=== PATIENT | female | born 1980 | race Caucasian/White ===

== ENCOUNTER → 2016-12-03 | Outpatient (CLI) | payer BC ==
[2016-12-03 13:50] LABS: PROGESTERONE 8.4 NG/ML
[2016-12-03 14:29] LABS: FREE T4 1.01 NG/DL (0.76-1.46)
== END ==
LOC: M SMT 09:27
PROVIDERS: ATTEND Obstetrics & Gynecology
DX: E28.2 Polycystic ovarian syndrome (principal)

== ENCOUNTER → 2017-01-09 | Outpatient (CLI) | payer BC | LOC: M SMT 15:52 | PROVIDERS: ATTEND Obstetrics & Gynecology | DX: Z32.01 Encounter for pregnancy test, result positive (principal) ==

== ENCOUNTER → 2017-01-11 | Outpatient (CLI) | payer BC | LOC: M SMT 13:43 | PROVIDERS: ATTEND Obstetrics & Gynecology | DX: Z32.01 Encounter for pregnancy test, result positive (principal) ==

== ENCOUNTER → 2017-01-25 | Outpatient (REF) | payer BC | LOC: M LAB REF 21:16 | PROVIDERS: ATTEND Physician Assistant Medical | DX: J02.9 Acute pharyngitis, unspecified (principal) ==

== ENCOUNTER → 2017-02-05 | Outpatient (CLI) | payer BC ==
[2017-02-05 18:23] LABS: BASO % 0.3 % (0.0-1.0); EOS # 0.2 K/mm3 (0.0-0.50); EOS % 2.2 % (0.0-3.0); LARGE UNSTAINED CELL # 0.1 K/mm3 (0.0-0.4); LARGE UNSTAINED CELL % 1.3 % (0.0-4.0); LYMPH # 2.4 K/mm3 (1.5-4.5); LYMPH % 26.2 % (24.0-44.0); MEAN CORPUSCULAR HEMOGLOBIN 29.5 pg (27.0-33.0); MEAN CORPUSCULAR HGB CONC 33.5 g/dl (32.0-36.5); MEAN CORPUSCULAR VOLUME 87.9 fl (80.0-96.0); MONO # 0.6 K/mm3 (0.0-0.8); MONO % 6.2 % (0.0-5.0); NEUTROPHILS # 5.6 K/mm3 (1.8-7.7); NEUTROPHILS % 63.7 % (36.0-66.0); PLATELET COUNT, AUTOMATED 353 k/mm3 (150-450); RED CELL DISTRIBUTION WIDTH 14.2 % (11.5-14.5); WHITE BLOOD COUNT 8.8 K/mm3 (4.0-10.0)
[2017-02-06 14:34] LABS: HBsAg Prenatal NEGATIVE (NEGATIVE)
== END ==
LOC: M SMT 13:34
PROVIDERS: ATTEND Obstetrics & Gynecology
DX: Z34.81 Encounter for supervision of other normal pregnancy, first trimester (principal)

== ENCOUNTER → 2017-05-28 | Outpatient (REF) | payer BC | LOC: M LAB REF 19:34 | PROVIDERS: ATTEND Physician Assistant Medical | DX: J02.9 Acute pharyngitis, unspecified (principal) ==

== ENCOUNTER → 2017-07-01 | Outpatient (CLI) | payer BC | LOC: M RAD 13:32 | DX: D48.62 Neoplasm of uncertain behavior of left breast (principal) ==

== ENCOUNTER → 2017-08-20 | Outpatient (CLI) | payer BC ==
[2017-08-20 14:17] LABS: BASO % 0.2 % (0.0-1.0); EOS # 0.1 10^3/uL (0.0-0.50); EOS % 1.4 % (0.0-3.0); HEMATOCRIT 33.8 % (36.0-47.0); HEMOGLOBIN 10.8 g/dl (12.0-16.0); IMMATURE GRANULOCYTE % 0.5 % (0-3.0); LYMPH # 2.1 10^3/uL (1.5-4.5); LYMPH % 21.9 % (24.0-44.0); MEAN CORPUSCULAR HEMOGLOBIN 28.6 pg (27.0-33.0); MEAN CORPUSCULAR VOLUME 89.4 fl (80.0-96.0); MONO # 0.7 10^3/uL (0.0-0.8); MONO % 6.8 % (0.0-5.0); NEUTROPHILS # 6.7 10^3/uL (1.8-7.7); NEUTROPHILS % 69.2 % (36.0-66.0); PLATELET COUNT, AUTOMATED 373 10^3/uL (150-450); RED BLOOD COUNT 3.78 10^6/uL (4.00-5.40); RED CELL DISTRIBUTION WIDTH 14.7 % (11.5-14.5); WHITE BLOOD COUNT 9.7 10^3/uL (4.0-10.0)
[2017-08-20 14:46] LABS: ALBUMIN 3.2 GM/DL (3.2-5.2); ALBUMIN/GLOBULIN RATIO 0.73 (1.00-1.93); ALKALINE PHOSPHATASE 120 U/L (45-117); ALT/SGPT 17 U/L (12-78); ANION GAP 9 MEQ/L (8-16); AST/SGOT 14 U/L (7-37); BILIRUBIN,TOTAL 0.2 MG/DL (0.2-1.0); BLOOD UREA NITROGEN 12 MG/DL (7-18); CALCIUM LEVEL 8.8 MG/DL (8.5-10.1); CARBON DIOXIDE LEVEL 24 MEQ/L (21-32); CHLORIDE LEVEL 103 MEQ/L (98-107); CREATININE FOR GFR 0.72 MG/DL (0.55-1.30); FREE T4 1.04 NG/DL (0.76-1.46); GLOMERULAR FILTRATION RATE > 60.0 (>60); GLUCOSE, FASTING 76 MG/DL (70-100); POTASSIUM SERUM 4.2 MEQ/L (3.5-5.1); SODIUM LEVEL 136 MEQ/L (136-145); TOTAL PROTEIN 7.6 GM/DL (6.4-8.2)
[2017-08-20 16:28] LABS: ESTIMATED AVERAGE GLUCOSE 108 MG/DL (60-110); HEMOGLOBIN A1c 5.4 %
[2017-08-21 09:38] LABS: RUBELLA IgG QUALITATIVE IMMUNE (IMMUNE)
[2017-08-21 09:40] LABS: HBsAg Prenatal NEGATIVE (NEGATIVE)
[2017-08-21 10:06] LABS: HEPATITIS C VIRUS ABY INDEX 0.1 INDEX (<0.8)
[2017-08-21 10:07] LABS: HIV 1&2 SCREEN CENTAUR NEGATIVE (NEGATIVE)
== END ==
LOC: M SMT 10:09
DX: Z34.81 Encounter for supervision of other normal pregnancy, first trimester (principal); Z3A.01 Less than 8 weeks gestation of pregnancy
CPT/HCPCS: 84443

== ENCOUNTER → 2017-08-23 | Outpatient (REF) | payer BC ==
[2017-08-23 21:46] LABS: CHLAMYDIA DNA AMPLIFICATION NEGATIVE (NEGATIVE); GC DNA AMPLIFICATION NEGATIVE (NEGATIVE)
== END ==
LOC: M LAB REF 17:19
DX: Z34.81 Encounter for supervision of other normal pregnancy, first trimester (principal)
CPT/HCPCS: 87086

== ENCOUNTER → 2017-09-12 | Outpatient (CLI) | payer BC | LOC: M SMT 11:26 | DX: Z31.438 Encounter for other genetic testing of female for procreative management (principal) | CPT/HCPCS: 36415 ==

== ENCOUNTER 2017-10-18 22:03 | Emergency (ER) | payer BC ==
[2017-10-18] MEDS: AZITHROMYCIN INJ 500 MG, VIAL MATE ADAPTER 1 EACH in D5W 250 ML IV (23:15)
[2017-10-18] MEDS: ALBUTEROL SULFATE 2.5 MG/0.5 ML INH NEB SOLN NEB (23:33)
[2017-10-18 23:37] LABS: BASO % 0.1 % (0.0-1.0); EOS # 0.2 10^3/uL (0.0-0.50); IMMATURE GRANULOCYTE % 0.4 % (0-3.0); LYMPH # 2.6 10^3/uL (1.5-4.5); LYMPH % 28.7 % (24.0-44.0); MEAN CORPUSCULAR HEMOGLOBIN 28.4 pg (27.0-33.0); MEAN CORPUSCULAR HGB CONC 33.3 g/dl (32.0-36.5); MEAN CORPUSCULAR VOLUME 85.2 fl (80.0-96.0); MONO # 0.6 10^3/uL (0.0-0.8); MONO % 6.2 % (0.0-5.0); NEUTROPHILS # 5.7 10^3/uL (1.8-7.7); NEUTROPHILS % 62.6 % (36.0-66.0); PLATELET COUNT, AUTOMATED 374 10^3/uL (150-450); RED BLOOD COUNT 3.52 10^6/uL (4.00-5.40); RED CELL DISTRIBUTION WIDTH 13.6 % (11.5-14.5); WHITE BLOOD COUNT 9.1 10^3/uL (4.0-10.0)
[2017-10-18 23:55] LABS: ANION GAP 9 MEQ/L (8-16); BLOOD UREA NITROGEN 10 MG/DL (7-18); CALCIUM LEVEL 9.1 MG/DL (8.5-10.1); CARBON DIOXIDE LEVEL 25 MEQ/L (21-32); CHLORIDE LEVEL 105 MEQ/L (98-107); CREATININE FOR GFR 0.73 MG/DL (0.55-1.30); GLOMERULAR FILTRATION RATE > 60.0 (>60); GLUCOSE, FASTING 103 MG/DL (70-100); POTASSIUM SERUM 3.8 MEQ/L (3.5-5.1); SODIUM LEVEL 139 MEQ/L (136-145)
[2017-10-19] MEDS: dexameTHASONE 20 MG/5 ML VIAL (J1100) IV
== END 2017-10-19 01:10 | disposition home or self-care (01) ==
LOC: M ED 10-19 01:10
DX: O99.512 Diseases of the respiratory system complicating pregnancy, second trimester (principal); J18.1 Lobar pneumonia, unspecified organism; J40 Bronchitis, not specified as acute or chronic; Z3A.16 16 weeks gestation of pregnancy; Z79.2 Long term (current) use of antibiotics; Z79.890 Hormone replacement therapy; Z79.84 Long term (current) use of oral hypoglycemic drugs
CPT/HCPCS: J0456

== ENCOUNTER → 2017-11-06 | Outpatient (REF) | payer BC ==
[2017-11-07 11:13] LABS: FREE T4 1.09 NG/DL (0.76-1.46); THYROID STIMULATING HORMONE 0.533 uIU/ML (0.358-3.740)
== END ==
LOC: M LAB REF 14:00
DX: E03.9 Hypothyroidism, unspecified (principal)
CPT/HCPCS: 84443

== ENCOUNTER → 2017-11-11 | Outpatient (CLI) | payer BC | LOC: M SMT 09:25 | DX: Z36.89 Encounter for other specified antenatal screening (principal); Z3A.19 19 weeks gestation of pregnancy | CPT/HCPCS: 76811 ==

== ENCOUNTER → 2017-11-25 | Outpatient (CLI) | payer BC | LOC: M CARPUL 14:45 | DX: R06.02 Shortness of breath (principal) | CPT/HCPCS: 94010 ==

== ENCOUNTER → 2017-12-20 | Outpatient (CLI) | payer BC ==
[2017-12-20 13:51] LABS: BASO % 0.1 % (0.0-1.0); EOS # 0.1 10^3/uL (0.0-0.50); HEMATOCRIT 29.4 % (36.0-47.0); HEMOGLOBIN 9.6 g/dl (12.0-15.5); IMMATURE GRANULOCYTE % 0.7 % (0-3.0); LYMPH # 1.7 10^3/uL (1.5-4.5); LYMPH % 14.2 % (24.0-44.0); MEAN CORPUSCULAR HEMOGLOBIN 28.8 pg (27.0-33.0); MEAN CORPUSCULAR HGB CONC 32.7 g/dl (32.0-36.5); MEAN CORPUSCULAR VOLUME 88.3 fl (80.0-96.0); MONO # 0.7 10^3/uL (0.0-0.8); MONO % 5.4 % (0.0-5.0); NEUTROPHILS # 9.7 10^3/uL (1.8-7.7); NEUTROPHILS % 78.6 % (36.0-66.0); PLATELET COUNT, AUTOMATED 416 10^3/uL (150-450); RED BLOOD COUNT 3.33 10^6/uL (4.00-5.40); WHITE BLOOD COUNT 12.3 10^3/uL (4.0-10.0)
[2017-12-20 14:27] LABS: GLUCOSE CHALLENGE TEST 1 HOUR 103 MG/DL (LESS THAN 140)
[2017-12-20 14:27] LABS: FREE T4 1.04 NG/DL (0.76-1.46); THYROID STIMULATING HORMONE 0.581 uIU/ML (0.358-3.740)
== END ==
LOC: M SMT 09:40
DX: O09.522 Supervision of elderly multigravida, second trimester (principal)
CPT/HCPCS: 82950

== ENCOUNTER → 2017-12-25 | Outpatient (CLI) | payer BC | LOC: M RAD 18:08 | DX: O09.522 Supervision of elderly multigravida, second trimester (principal); Z36.89 Encounter for other specified antenatal screening; Z3A.25 25 weeks gestation of pregnancy | CPT/HCPCS: 76816 ==

== ENCOUNTER → 2018-02-11 | Outpatient (CLI) | payer BC | LOC: M RAD 14:01 | DX: I10 Essential (primary) hypertension (principal) ==

== ENCOUNTER → 2018-02-13 | Outpatient (CLI) | payer BC | LOC: M RAD 16:56 | DX: I10 Essential (primary) hypertension (principal) ==

== ENCOUNTER → 2018-02-18 | Outpatient (CLI) | payer BC | LOC: M RAD 11:25 | DX: O10.013 Pre-existing essential hypertension complicating pregnancy, third trimester (principal); Z3A.33 33 weeks gestation of pregnancy | CPT/HCPCS: 76815 ==

== ENCOUNTER → 2018-02-21 | Outpatient (CLI) | payer BC | LOC: M RAD 11:28 | DX: O10.013 Pre-existing essential hypertension complicating pregnancy, third trimester (principal); Z3A.34 34 weeks gestation of pregnancy | CPT/HCPCS: 76815 ==

== ENCOUNTER → 2018-02-25 | Outpatient (CLI) | payer BC | LOC: M RAD 15:04 | DX: O10.013 Pre-existing essential hypertension complicating pregnancy, third trimester (principal) | CPT/HCPCS: 76819 ==

== ENCOUNTER → 2018-02-27 | Outpatient (CLI) | payer BC | LOC: M RAD 11:29 | DX: O10.013 Pre-existing essential hypertension complicating pregnancy, third trimester (principal); Z3A.35 35 weeks gestation of pregnancy | CPT/HCPCS: 76815 ==

== ENCOUNTER → 2018-02-27 | Outpatient (REF) | payer BC | LOC: M LAB REF 17:42 | DX: O10.013 Pre-existing essential hypertension complicating pregnancy, third trimester (principal) ==

== ENCOUNTER → 2018-03-04 | Outpatient (CLI) | payer BC | LOC: M RAD 09:59 | DX: O10.013 Pre-existing essential hypertension complicating pregnancy, third trimester (principal) | CPT/HCPCS: 76815 ==

== ENCOUNTER → 2018-03-06 | Outpatient (CLI) | payer BC | LOC: M RAD 11:48 | DX: I10 Essential (primary) hypertension (principal) | CPT/HCPCS: 76815 ==

== ENCOUNTER → 2018-03-11 | Outpatient (CLI) | payer BC | LOC: M RAD 12:08 | DX: I10 Essential (primary) hypertension (principal) | CPT/HCPCS: 76815 ==

== ENCOUNTER 2018-03-12 15:56 | Inpatient (IN) | payer BC ==
[2018-03-12] MEDS ORDERED: PENICILLIN G POTASSIUM IV 5 MU in D5W MINI-BAG PLUS 100 ML IV (16:00)
[2018-03-12] MEDS ORDERED: LR 1,000 ML IV (17:00)
[2018-03-12 17:03] LABS: HEMATOCRIT 32.7 % (36.0-47.0); HEMOGLOBIN 10.8 g/dl (12.0-15.5); MEAN CORPUSCULAR HEMOGLOBIN 29.2 pg (27.0-33.0); MEAN CORPUSCULAR VOLUME 88.4 fl (80.0-96.0); PLATELET COUNT, AUTOMATED 392 10^3/uL (150-450); RED CELL DISTRIBUTION WIDTH 15.2 % (11.5-14.5); WHITE BLOOD COUNT 10.9 10^3/uL (4.0-10.0)
[2018-03-12] MEDS: miSOPROStol 50 MCG 1/2 TAB (S0191) SL ×2 (17:22→21:27)
[2018-03-12] MEDS: LACTATED RINGER'S 1000 ML IV (17:23)
[2018-03-12 17:41] LABS: ALT/SGPT 19 U/L (12-78); AST/SGOT 19 U/L (7-37); BILIRUBIN,TOTAL 0.1 MG/DL (0.2-1.0); CREATININE FOR GFR 0.76 MG/DL (0.55-1.30); GLOMERULAR FILTRATION RATE > 60.0 (>60); LDH LACTATE DEHYDROGENASE 163 U/L (84-246); URIC ACID 6.3 MG/DL (2.6-6.0)
[2018-03-12] MEDS ORDERED: PENICILLIN G POTASSIUM IV 2.5 MU in APPROPRIATE DILUENT 1 EA IV (20:00)
[2018-03-12] MEDS: LABETALOL 200 MG TAB PO (22:37)
[2018-03-12] MEDS: metFORMIN (GLUCOPHAGE) 1000 MG TABLET PO (22:38)
[2018-03-13] MEDS: miSOPROStol 50 MCG 1/2 TAB (S0191) SL ×2 (01:57→08:27)
[2018-03-13] MEDS: LABETALOL 200 MG TAB PO ×2 (08:26→20:21)
[2018-03-13] MEDS: metFORMIN (GLUCOPHAGE) 1000 MG TABLET PO ×2 (08:26→18:06)
[2018-03-13] MEDS ORDERED: **PENDING PCN ENTRY XX (09:00)
[2018-03-13] MEDS: OXYTOCIN DRIP 30 UNITS in APPROPRIATE DILUENT 1 EA IV (12:27)
[2018-03-13] MEDS: PENICILLIN G POTASSIUM IV 5 MU in D5W MINI-BAG PLUS 100 ML IV (14:30)
[2018-03-13] MEDS: PENICILLIN G POTASSIUM IV 2.5 MU in APPROPRIATE DILUENT 1 EA IV (18:12)
[2018-03-13] MEDS ORDERED: BICITRA 30ML SOLN UDC As Ordered (21:08)
[2018-03-13] MEDS ORDERED: ceFAZolin 2 GM/D5W 50 ML IV BAG (J0690 PER 500MG) As Ordered (21:08)
[2018-03-13 21:11] LABS: HEMATOCRIT 32.9 % (36.0-47.0); HEMOGLOBIN 10.6 g/dl (12.0-15.5); MEAN CORPUSCULAR HEMOGLOBIN 28.6 pg (27.0-33.0); MEAN CORPUSCULAR HGB CONC 32.2 g/dl (32.0-36.5); MEAN CORPUSCULAR VOLUME 88.7 fl (80.0-96.0); PLATELET COUNT, AUTOMATED 383 10^3/uL (150-450); RED BLOOD COUNT 3.71 10^6/uL (4.00-5.40); RED CELL DISTRIBUTION WIDTH 15.1 % (11.5-14.5); WHITE BLOOD COUNT 16.1 10^3/uL (4.0-10.0)
[2018-03-13] MEDS: BICITRA 30ML SOLN UDC PO (21:21)
[2018-03-13] MEDS ORDERED: MORPHINE PRES-FREE INJ 10 MG/10 ML VIAL (J2274) As Ordered (21:22)
[2018-03-13] MEDS ORDERED: OXYTOCIN INJ 10 UNITS/ML VIAL (J2590) As Ordered ×5 (21:28→22:22)
[2018-03-13] MEDS ORDERED: METOCLOPRAMIDE INJ 10MG/2ML VIAL (J2765) As Ordered (21:28)
[2018-03-13] MEDS ORDERED: ONDANSETRON 4MG/2ML VIAL (J2405) IV ×3 (21:30→23:00)
[2018-03-13] MEDS ORDERED: METOCLOPRAMIDE INJ 10MG/2ML VIAL (J2765) IV (21:30)
[2018-03-13] MEDS ORDERED: NALBUPHINE HCL 10 MG/ML AMP (J2300) IV ×2 (21:30→22:45)
[2018-03-13] MEDS ORDERED: NALOXONE INJ 0.4 MG/1 ML VIAL (J2310) IV ×2 (21:30)
[2018-03-13] MEDS ORDERED: KETOROLAC 60 MG/2 ML VIAL (J1885) As Ordered (22:19)
[2018-03-13] MEDS ORDERED: ONDANSETRON 4MG/2ML VIAL (J2405) As Ordered (22:19)
[2018-03-13] MEDS ORDERED: MEPERIDINE INJ 25 MG/ML VIAL (J2175) IV (22:45)
[2018-03-13] MEDS ORDERED: HYDROMORPHONE HCL 0.5 MG/ 0.5 ML SYRINGE (J1170 PER 1) IV (22:45)
[2018-03-13] MEDS ORDERED: NORCO, ANEXSIA 5/325MG TABLET (HYDROcodone/ACETAMINOPHEN) PO (22:45)
[2018-03-13] MEDS ORDERED: fentaNYL 100 MCG/2 ML INJECTION (J3010) IV (22:45)
[2018-03-13] MEDS ORDERED: PERCOCET 5MG/325MG TAB PO ×2 (22:45→23:00)
[2018-03-13] MEDS ORDERED: MEASLES,MUMPS,RUBELLA VACCINE INJ (MMR-II) (90707) SC (23:00)
[2018-03-13] MEDS ORDERED: RHOGAM 300 MCG (1500 IU) INJ (J2790) IM (23:00)
[2018-03-14] MEDS: LR 1,000 ML IV ×4 (03:48→22:55)
[2018-03-14] MEDS: KETOROLAC 30 MG/ML VIAL (J1885) IV ×3 (04:39→17:40)
[2018-03-14 07:07] LABS: HEMATOCRIT 28.7 % (36.0-47.0); HEMOGLOBIN 9.4 g/dl (12.0-15.5); MEAN CORPUSCULAR HEMOGLOBIN 28.8 pg (27.0-33.0); MEAN CORPUSCULAR HGB CONC 32.8 g/dl (32.0-36.5); PLATELET COUNT, AUTOMATED 333 10^3/uL (150-450); RED BLOOD COUNT 3.26 10^6/uL (4.00-5.40); RED CELL DISTRIBUTION WIDTH 15.2 % (11.5-14.5); WHITE BLOOD COUNT 14.5 10^3/uL (4.0-10.0)
[2018-03-14] MEDS: PRENATAL VITAMINS CHEWABLE TABLET PO (07:50)
[2018-03-14] MEDS ORDERED: guaiFENesin ER 600 MG TAB PO (09:00)
[2018-03-14] MEDS: LABETALOL 200 MG TAB PO ×2 (09:18→20:47)
[2018-03-14] MEDS: INFLUENZA QUADRIVALENT PF VACCINE 0.5ML SYRINGE (90686) IM (12:35)
[2018-03-14] MEDS: DOCUSATE SODIUM 100 MG CAP PO (20:46)
[2018-03-14] MEDS: LABETALOL 100 MG TAB PO (23:30)
[2018-03-15] MEDS: IBUPROFEN 800 MG TAB PO ×3 (01:00→16:33)
[2018-03-15] MEDS: PERCOCET 5MG/325MG TAB PO ×3 (01:04→20:20)
[2018-03-15] MEDS: PRENATAL VITAMINS CHEWABLE TABLET PO (08:18)
[2018-03-15] MEDS: LABETALOL 100 MG TAB PO ×2 (08:20→18:46)
[2018-03-15] MEDS: SERTRALINE HCL 50 MG TAB PO (09:48)
[2018-03-15 19:03] LABS: HEMATOCRIT 28.7 % (36.0-47.0); HEMOGLOBIN 9.2 g/dl (12.0-15.5); MEAN CORPUSCULAR HEMOGLOBIN 28.8 pg (27.0-33.0); MEAN CORPUSCULAR HGB CONC 32.1 g/dl (32.0-36.5); PLATELET COUNT, AUTOMATED 355 10^3/uL (150-450); RED BLOOD COUNT 3.19 10^6/uL (4.00-5.40); RED CELL DISTRIBUTION WIDTH 15.6 % (11.5-14.5); WHITE BLOOD COUNT 11.1 10^3/uL (4.0-10.0)
[2018-03-15 19:38] LABS: ALT/SGPT 20 U/L (12-78); AST/SGOT 27 U/L (7-37); BILIRUBIN,TOTAL 0.1 MG/DL (0.2-1.0); GLOMERULAR FILTRATION RATE > 60.0 (>60); LDH LACTATE DEHYDROGENASE 187 U/L (84-246); URIC ACID 6.2 MG/DL (2.6-6.0)
[2018-03-15] MEDS: DOCUSATE SODIUM 100 MG CAP PO (20:20)
[2018-03-16] MEDS: IBUPROFEN 800 MG TAB PO ×2 (00:46→08:38)
[2018-03-16] MEDS: PERCOCET 5MG/325MG TAB PO (07:26)
[2018-03-16] MEDS: SERTRALINE HCL 50 MG TAB PO (08:36)
[2018-03-16] MEDS: PRENATAL VITAMINS CHEWABLE TABLET PO (08:36)
[2018-03-16] MEDS: LABETALOL 100 MG TAB PO (08:37)
== END 2018-03-16 12:59 | disposition home or self-care (01) | DRG 540 ==
LOC: M LDI 15:56 → M OBS 03-14 00:57
PROC: 10D00Z1 Extraction of Products of Conception, Low, Open Approach (ICD-10-PCS; principal; 2018-03-13 21:32)
PROC: 3E0DXGC Introduction of Other Therapeutic Substance into Mouth and Pharynx, External Approach (ICD-10-PCS; 2018-03-13 21:32)
DX: O14.94 Unspecified pre-eclampsia, complicating childbirth (principal); O36.5930 Maternal care for other known or suspected poor fetal growth, third trimester, not applicable or unspecified; Z37.0 Single live birth; Z3A.36 36 weeks gestation of pregnancy; E03.9 Hypothyroidism, unspecified; O99.284 Endocrine, nutritional and metabolic diseases complicating childbirth; O09.523 Supervision of elderly multigravida, third trimester; D64.9 Anemia, unspecified; O99.02 Anemia complicating childbirth; O62.0 Primary inadequate contractions; O61.0 Failed medical induction of labor

== ENCOUNTER → 2018-03-17 | Outpatient (CLI) | payer BC ==
[2018-03-17 14:16] LABS: FREE T4 1.13 NG/DL (0.76-1.46)
[2018-03-17 14:17] LABS: TOTAL 25(OH) VITAMIN D 25.4 NG/ML (30.0-100.0)
== END ==
LOC: M SMT 10:33
DX: F53.0 Postpartum depression (principal)
CPT/HCPCS: 84443

== ENCOUNTER → 2018-10-13 | Outpatient (REF) | payer BC ==
[~2018-10-13] MED LIST: AMOX875T PO; CALC1TAB9 PO; FLON1SPR; FOLI400T PO; IRON27TA2 PO; LABE20TAB PO; LABE300T2 PO; LEVO-89 PO; METF10004 PO; OXYC1TAB23 PO; PRED20TA PO; PREN1PAK PO; PREN27TA3 PO; PROAAER10 INH; ZITHTAB PO; ZOLO50TA PO; ZYRT10CA PO
[2018-10-13 19:42] LABS: FREE T4 1.26 NG/DL (0.76-1.46); THYROID STIMULATING HORMONE 1.55 uIU/ML (0.358-3.740)
== END ==
LOC: M SFHCADAM 14:24
PROVIDERS: ATTEND Physician Assistant Medical
DX: E03.9 Hypothyroidism, unspecified (principal)

== ENCOUNTER → 2018-10-17 | Outpatient (CLI) | payer BC ==
--- NOTE | 2018-10-17 16:27 | REP ---
HISTORY: Chronic back pain with lower extremity radicular symptoms. COMPARISON: None. There is heavy syndesmophyte formation seen on the right L1-2 and L2-3 with heavy partial syndesmophyte formation on the left at L3-4 and on the right at T12-L1. Complete syndesmophyte formation is seen on the left at L4-5. There is levoconvex curve. There is anterior lipping at every level. There is advanced degenerative disc space narrowing at every level. Vertebral body height is within normal limits. IMPRESSION: Marked chronic changes. Consider followup with MRI. Electronically Signed by Mark Art DO 10/23/2018 02:36 P
== END ==
LOC: M ADAMS 14:16
PROVIDERS: ATTEND Physician Assistant Medical
DX: M25.78 Osteophyte, vertebrae (principal)

== ENCOUNTER → 2019-12-14 | Outpatient (REF) | payer BC ==
[2019-12-14 12:38] LABS: BASO % 0.3 % (0.0-1.0); EOS # 0.2 10^3/uL (0.0-0.5); EOS % 1.7 % (0.0-3.0); HEMATOCRIT 38.1 % (36.0-47.0); LYMPH % 25.7 % (24.0-44.0); MEAN CORPUSCULAR HEMOGLOBIN 27.7 pg (27.0-33.0); MEAN CORPUSCULAR HGB CONC 31.5 g/dl (32.0-36.5); MONO # 0.8 10^3/uL (0.0-0.8); MONO % 7.3 % (0.0-5.0); NEUTROPHILS # 7.4 10^3/uL (1.5-8.5); NEUTROPHILS % 64.4 % (36.0-66.0); PLATELET COUNT, AUTOMATED 434 10^3/uL (150-450); RED BLOOD COUNT 4.33 10^6/uL (4.00-5.40); WHITE BLOOD COUNT 11.5 10^3/uL (4.0-10.0)
[2019-12-14 13:14] LABS: ALBUMIN 3.1 GM/DL (3.2-5.2); ALT/SGPT 24 U/L (12-78); BILIRUBIN,TOTAL 0.2 MG/DL (0.2-1.0); BLOOD UREA NITROGEN 17 MG/DL (7-18); CALCIUM LEVEL 9.2 MG/DL (8.5-10.1); CARBON DIOXIDE LEVEL 25 MEQ/L (21-32); CHLORIDE LEVEL 105 MEQ/L (98-107); CHOLESTEROL LEVEL 218 MG/DL (<200); CHOLESTEROL RISK RATIO 6.055 (<5); CREATININE FOR GFR 0.95 MG/DL (0.55-1.30); GLOMERULAR FILTRATION RATE > 60.0 (>60); GLUCOSE, FASTING 78 MG/DL (70-100); HDL CHOLESTEROL 36 MG/DL (>40); NON-HDL-C 182 MG/DL; POTASSIUM SERUM 4.6 MEQ/L (3.5-5.1); SODIUM LEVEL 136 MEQ/L (136-145); TRIGLYCERIDES LEVEL 430 MG/DL (<150)
== END ==
LOC: M SFHCADAM 09:44
PROVIDERS: ATTEND Physician Assistant Medical
DX: E66.01 Morbid (severe) obesity due to excess calories (principal); E03.9 Hypothyroidism, unspecified; F53.0 Postpartum depression; E28.2 Polycystic ovarian syndrome

== ENCOUNTER → 2020-03-04 | Outpatient (REF) | payer BC | LOC: M LAB REF 17:16 → M SFHCADAM 17:16 | PROVIDERS: ATTEND Physician Assistant Medical | DX: I10 Essential (primary) hypertension (principal); E03.9 Hypothyroidism, unspecified ==

== ENCOUNTER → 2020-05-17 | Outpatient (CLI) | payer SELFPAY | LOC: M LABSMTC 17:53 | PROVIDERS: ATTEND Pediatrics | DX: Z11.59 Encounter for screening for other viral diseases (principal) ==

== ENCOUNTER → 2020-05-27 | Outpatient (REF) | payer BC | LOC: M SFHCWAGY 12:48 | PROVIDERS: ATTEND Specialist | DX: Z12.4 Encounter for screening for malignant neoplasm of cervix (principal) ==

== ENCOUNTER → 2020-11-03 | Outpatient (REF) | payer BC ==
[~2020-11-03] MED LIST changes: -FOLI400T PO; +FOLI400T13 PO
[2020-11-03 18:06] LABS: HEMATOCRIT 35.9 % (36.0-47.0); HEMOGLOBIN 11.1 g/dl (12.0-15.5); MEAN CORPUSCULAR HEMOGLOBIN 27.7 pg (27.0-33.0); MEAN CORPUSCULAR HGB CONC 30.9 g/dl (32.0-36.5); MEAN CORPUSCULAR VOLUME 89.5 fl (80.0-96.0); PLATELET COUNT, AUTOMATED 414 10^3/uL (150-450); RED BLOOD COUNT 4.01 10^6/uL (4.00-5.40); WHITE BLOOD COUNT 11.1 10^3/uL (4.0-10.0)
[2020-11-03 19:15] LABS: HEPATITIS C VIRUS ABY INDEX 0.1 INDEX (<0.8); HIV 1&2 SCREEN CENTAUR NEGATIVE (NEGATIVE)
== END ==
LOC: M PLALAB 13:40 → M SFHCADAM 13:52
PROVIDERS: ATTEND Specialist
DX: Z34.81 Encounter for supervision of other normal pregnancy, first trimester (principal)

== ENCOUNTER → 2020-11-21 | Outpatient (CLI) | payer BC | LOC: M PLALAB 10:27 | PROVIDERS: ATTEND Specialist | DX: O09.521 Supervision of elderly multigravida, first trimester (principal) ==

== ENCOUNTER → 2021-01-23 | Outpatient (CLI) | payer BC ==
--- NOTE | 2021-01-23 21:57 | REP ---
INDICATION: ANATOMY COMPARISON: None. TECHNIQUE: Transabdominal obstetrical ultrasound with color Doppler evaluation. FINDINGS: Examination demonstrates a single live intrauterine in variable presentation. motion is identified by technologist. Placenta is noted posterior and grade 0 without evidence for placenta previa or abruption. Amniotic fluid volume is normal. Cervix measures 4.5 cm in length and appears closed.. Selected gestational age: 23 weeks 1 day with JORGE LUIS 05/21/2021. Gestational age by current measurements 23 weeks 2 days with JORGE LUIS 05/20/2021. FHR equals 161 beats per minute. BPD: 5.8 cm at 23 weeks 5 days HC: 21.7 cm at 23 weeks 5 days AC: 19.0 cm at 23 weeks 5 days FL: 4.1 cm at 23 weeks 2 days HL: 3.5 cm at 21 weeks 6 days HC/AC: 1.14 Estimated weight 607 grams (63rdpercentile). Anatomical assessment demonstrates normal structures including cranium, choroid plexus, cavum, cerebellum/posterior fossa, facial features, lungs, four-chamber heart/ventricular outflow tracts, diaphragm, stomach, cord insertion/three-vessel cord, kidneys/bladder, spine, and extremities. IMPRESSION: Single live intrauterine in variable presentation demonstrating appropriate estimated weight. Anatomical assessment is complete and normal. <Electronically signed by Conrad Viera > 01/23/21 [id number]
== END ==
LOC: M WHC 14:00
PROVIDERS: ATTEND Obstetrics & Gynecology
DX: O34.211 Maternal care for low transverse scar from previous cesarean delivery (principal); Z3A.23 23 weeks gestation of pregnancy

== ENCOUNTER → 2021-02-20 | Outpatient (CLI) | payer BC ==
[2021-02-20 13:39] LABS: HEMATOCRIT 29.4 % (36.0-47.0); HEMOGLOBIN 9.3 g/dl (12.0-15.5); MEAN CORPUSCULAR HEMOGLOBIN 28.4 pg (27.0-33.0); MEAN CORPUSCULAR HGB CONC 31.6 g/dl (32.0-36.5); MEAN CORPUSCULAR VOLUME 89.9 fl (80.0-96.0); PLATELET COUNT, AUTOMATED 387 10^3/uL (150-450); RED BLOOD COUNT 3.27 10^6/uL (4.00-5.40); WHITE BLOOD COUNT 11.9 10^3/uL (4.0-10.0)
[2021-02-20 14:44] LABS: GC DNA AMPLIFICATION NEGATIVE (NEGATIVE)
== END ==
LOC: M PLALAB 08:14
PROVIDERS: ATTEND Obstetrics & Gynecology
DX: O34.211 Maternal care for low transverse scar from previous cesarean delivery (principal)

== ENCOUNTER → 2021-02-20 | Outpatient (CLI) | payer BC ==
[2021-02-20 14:49] LABS: TOTAL PROTEIN,RANDOM URINE 105.9 MG/DL (0.0-12.0)
[2021-02-20 15:36] LABS: ALT/SGPT 14 U/L (12-78); BILIRUBIN,TOTAL 0.2 MG/DL (0.2-1.0); FREE T4 0.97 NG/DL (0.76-1.46); GLOMERULAR FILTRATION RATE > 60.0 (>58); LDH LACTATE DEHYDROGENASE 110 U/L (84-246); URIC ACID 5.3 MG/DL (2.6-6.0)
== END ==
LOC: M PLALAB 08:12
PROVIDERS: ATTEND Advanced Practice Midwife
DX: O99.282 Endocrine, nutritional and metabolic diseases complicating pregnancy, second trimester (principal); O10.012 Pre-existing essential hypertension complicating pregnancy, second trimester

== ENCOUNTER → 2021-03-27 | Outpatient (CLI) | payer BC, MEDICAID ==
--- NOTE | 2021-03-27 10:27 | REP ---
INDICATION: GROWTH BPP HYPERTENSION COMPARISON: 01/23/2021 TECHNIQUE: Transabdominal obstetrical ultrasound with color Doppler evaluation. FINDINGS: Examination demonstrates a single live intrauterine in breech presentation. motion is identified by technologist. Placenta is noted posterior and grade 1 without evidence for placenta previa or abruption. Amniotic fluid volume is normal. Cervix measures 4.1 cm in length and appears closed.. Selected gestational age: 32 weeks 1 day with JORGE LUIS 05/21/2021. Gestational age by current measurements 33 weeks 0 days with JORGE LUIS 05/15/2021. FHR equals 167 beats per minute. BPD: 7.9 cm at 31 weeks 6 days HC: 29.5 cm at 32 weeks 4 days AC: 29.4 cm at 33 weeks 3 days FL: 6.7 cm at 34 weeks 2 days HL: 5.6 cm at 32 weeks 4 days HC/AC: 1.00 Estimated weight 2192 grams (79thpercentile). DARION: 12.0 cm Biophysical profile score: 8/8 Umbilical artery SD ratio: 2.09 IMPRESSION: Single live advanced gestation in breech presentation demonstrating appropriate interval growth. Amniotic fluid volume and biophysical profile score are normal. <Electronically signed by Conrad Viera > 03/27/21 [id number]
== END ==
LOC: M WHC 09:34
PROVIDERS: ATTEND Advanced Practice Midwife
DX: O10.913 Unspecified pre-existing hypertension complicating pregnancy, third trimester (principal); Z3A.32 32 weeks gestation of pregnancy

== ENCOUNTER → 2021-04-03 | Outpatient (CLI) | payer BC, MEDICAID ==
[~2021-04-03] MED LIST changes: +ASPI81CH33 PO; +LABE200T32 PO; +LEVO100T5 PO; +TUMS500C PO
--- NOTE | 2021-04-03 14:52 | REP ---
INDICATION: BPP HYPERTENSION. COMPARISON: 03/27/2021. TECHNIQUE: Real-time sonographic evaluation of gravid uterus performed. FINDINGS: There is a single living intrauterine gestation estimated gestational age is reportedly 33 weeks 1 day, EDC 05/21/2021. position breech. Placenta posterior and grade 2 with no previa. heart rate 152 beats per minute. Amniotic fluid within normal limits. DARION 12.8, normal 8.3-24.5. Biophysical profile score 8/8. SD ratio umbilical artery 2.84, normal 1.78-3.76. RI 0.65, normal 0.48-0.74. Cervix is closed measures 4.2 cm in length. IMPRESSION: Biophysical profile score 8/8. <Electronically signed by Jung Valle > 04/03/21 [id number]
== END ==
LOC: M WHC 12:05
PROVIDERS: ATTEND Advanced Practice Midwife
DX: O10.919 Unspecified pre-existing hypertension complicating pregnancy, unspecified trimester (principal); Z3A.33 33 weeks gestation of pregnancy

== ENCOUNTER → 2021-04-03 | Outpatient (REF) | payer BC, MEDICAID ==
[~2021-04-03] MED LIST changes: +IBUP80TA PO; +LABE100T4 PO; +NIFE1TAB52 PO
[2021-04-04 11:44] LABS: HEMATOCRIT 32.8 % (36.0-47.0); HEMOGLOBIN 10.4 g/dl (12.0-15.5); MEAN CORPUSCULAR HEMOGLOBIN 28.3 pg (27.0-33.0); MEAN CORPUSCULAR HGB CONC 31.7 g/dl (32.0-36.5); MEAN CORPUSCULAR VOLUME 89.4 fl (80.0-96.0); PLATELET COUNT, AUTOMATED 405 10^3/uL (150-450); RED BLOOD COUNT 3.67 10^6/uL (4.00-5.40); WHITE BLOOD COUNT 12.2 10^3/uL (4.0-10.0)
[2021-04-04 12:57] LABS: ALBUMIN 2.4 GM/DL (3.2-5.2); ALT/SGPT 18 U/L (12-78); BILIRUBIN,TOTAL 0.1 MG/DL (0.2-1.0); BLOOD UREA NITROGEN 13 MG/DL (7-18); CALCIUM LEVEL 10.4 MG/DL (8.5-10.1); CARBON DIOXIDE LEVEL 27 MEQ/L (21-32); CHLORIDE LEVEL 103 MEQ/L (98-107); CREATININE FOR GFR 0.72 MG/DL (0.55-1.30); GLOMERULAR FILTRATION RATE > 60.0 (>58); GLUCOSE, FASTING 101 MG/DL (70-100); POTASSIUM SERUM 4.5 MEQ/L (3.5-5.1); SODIUM LEVEL 137 MEQ/L (136-145); TOTAL PROTEIN 6.9 GM/DL (6.4-8.2)
[2021-04-04 13:29] LABS: TOTAL PROTEIN,RANDOM URINE 110.2 MG/DL (0.0-12.0)
== END ==
LOC: M SFHCCLAY 14:51
PROVIDERS: ATTEND Physician Assistant
DX: O16.3 Unspecified maternal hypertension, third trimester (principal); O99.613 Diseases of the digestive system complicating pregnancy, third trimester; K12.2 Cellulitis and abscess of mouth; Z3A.00 Weeks of gestation of pregnancy not specified

== ENCOUNTER 2021-04-05 16:36 | Inpatient (IN) | payer BC, MEDICAID ==
[~2021-04-05] VITALS: Ht 170.2 cm; Wt 134.5 kg
[2021-04-05] VITALS (22 sets, daily range): BP systolic 134–184; BP diastolic 63–87
[~2021-04-05 16:36] MED LIST changes: -ASPI81CH33 PO; -IBUP80TA PO; -LABE100T4 PO; -LABE200T32 PO; -LEVO100T5 PO; -NIFE1TAB52 PO; -TUMS500C PO
[2021-04-05] MEDS ORDERED: LABETALOL 200 MG TAB PO ONE (17:35)
[2021-04-05] MEDS ORDERED: TUMS500C PO (17:42)
[2021-04-05] MEDS ORDERED: LEVO100T5 PO (17:42)
[2021-04-05] MEDS ORDERED: LABE200T32 PO (17:42)
[2021-04-05] MEDS ORDERED: ASPI81CH33 PO (17:42)
[2021-04-05] MEDS: BETAMETHASONE SOLUSPAN 6MG/ML 5ML VIAL (J0702 PER 3MG) IM SCH (17:52)
[2021-04-05] MEDS ORDERED: HOME MED LIST COMPLETE! XX SCH (19:20)
--- NOTE | 2021-04-05 20:31 | REPVR ---
PROCEDURE INFORMATION: Exam: US Biophysical Profile Without Non-Stress Test Exam date and time: 04/05/2021 7:33 PM Age: 40 years old Clinical indication: Other: Maternal hypertension; ; Additional info: Chronic hypertension with severe range BP TECHNIQUE: Imaging protocol: US biophysical profile without non-stress testing. COMPARISON: US BPP W/O NON STRESS TEST 04/03/2021 12:22 PM FINDINGS: BIOPHYSICAL PROFILE: Breathin/2 Gross body movements: 2/2 tone: 2/2 Qualitative amniotic fluid: 2/2 Biophysical Profile Score: 8/8 heart rate is 169 bpm. Cervical length is 3.4 cm position at this point is breech. Placental position is posterior. IMPRESSION: Biophysical profile score is 8 out of 8. Electronically signed by: Apollo Saenz On 04/05/2021 20:30:56 PM
--- OUTSIDE RECORDS SUMMARY | 2021-04-05 20:35 | CCD ---
Author Author [facility] Organization [facility] Address Unknown Phone Unavailable Care Team Providers Care Sledger Name Role Phone Adamaris North Unavailable PROBLEMS Type Condition ICD9-CM Code UFP98-VP Code Onset Dates Condition S tatus W/U Status Risk SNOMED Code Notes Problem Morbid obesity due to excess calories E66.01 Ac tive confirmed 898488832 Problem PCOS (polycystic ovarian syndrome) E28.2 Activ e confirmed 76738186 Problem Hypothyroidism (acquired) E03.9 Active confirmed 731739918 Problem Hypertriglyceridemia E78.1 Active confirmed 965336893 Problem Lumbar degenerative disc disease M51.36 Active conf irmed 65739642 Problem Supervision of other normal Z34.80 Ac tive confirm 045146941 Problem 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 Active confirmed 658555511689220 Problem Lumbago with sciatica, right side M54.41 Active confirmed 375052659 Problem Other chronic pain G89.29 Active confirmed 8 9989448 Problem Essential hypertension I10 Active confirmed 45164866 ALLERGIES No Known Allergies ENCOUNTERS from 1980 to 2021-02-04 Encounter Location Date Provider Diagnosis [facility] [address] [facility] [phone] [place] [address] Jan, Adamaris Can Maternal care due to low transverse uterine scar from previous delivery O34.211 and 21 weeks gestation of Z3A.21 IMMUNIZATIONS No Information SOCIAL HISTORY Tobacco Use: Social History Observation Description Date Details (start date - stop date) Never Smoker Sex Assigned At : Social History Observation Description Sex Assigned At Unknown Education: Question Answer Notes Level of Education: Finished College Audit Question Answer Notes Total Score: 0 Interpretation: Alcohol Education Language: Question Answer Notes Languages spoken: Serbian Mandaeism: Question Answer Notes Mandaeism 08 [employer] Sexual Hx: Question Answer Notes Had sex in the last 12 months (vaginal, oral, or anal)? Yes with Men only Use protection? No Drug and Alcohol Question Answer Notes Total Score: 0 Interpretation: No problems reported Alcohol Screening: Question Answer Notes Did you have a drink containing alcohol in the past year? No Points 0 Interpretation Negative BMI Care Goal Follow-Up Question Answer Notes Above Normal BMI Follow-Up Dietary management educatio n, guidance, and counseling Tobacco Use: Question Answer Notes Are you a: never smoker REASON FOR REFERRAL No Information VITAL SIGNS Weight 293.6 lbs Jan, Height 5'7" in Jan, BMI 45.984 kg/m2 Jan, Blood pressure systolic 132 mm Hg Jan, Blood pressure diastolic 70 mm Hg Jan, MEDICATIONS Medication SIG (Take, Route, Frequency, Duration) Notes Start Da te End Date Status [place]-Linyah 0.25-35 MG-MCG 1 tablet Orally Once a day for 90 day (s) Jun, Not-Taking metFORMIN HCl 1000 MG 1 tablet with a meal Orally Once a day for 90 day(s) Aug, Active Labetalol HCl 200 MG 1 tablet Orally once daily for 30 Days Active Active Tylenol 325 MG 1 capsule as needed Orally every 4 hrs Active Sertraline HCl 50 MG 1 tab Orally Daily for 90 day(s) Active Phentermine HCl 37.5 MG 1 capsule Orally Once a day for 30 days May, Not-Taking Levothyroxine Sodium 100 MCG 1 tablet on an empty stom ach in the morning Orally Once a day for 30 day(s) Active Chlorthalidone 25 MG 1 tablet in the morning with food Orally Once a day for 30 day(s) Dec, Not-Taking Folic Acid Active PROCEDURES No Information RESULTS No Results REASON FOR VISIT 4WK PN MEDICAL (GENERAL) HISTORY Type Description Date Medical History PCOS Medical History HTN during Medical History hypothyroidism Medical History morbid obesity Medical History post partem depression Surgical History Left Breast Abcess drained 06/2017 Surgical History 03/2018 Hospitalization History See above surgeries Hospitalization History Childbirth Goals Section No Information Health Concerns No Information MEDICAL EQUIPMENT No Information MENTAL STATUS No Information FUNCTIONAL STATUS No Information ASSESSMENTS Encounter Date Diagnosis Assessment Notes Treatment Notes Treatm ent Clinical Notes Jan, Maternal care due to low tra nsverse uterine scar from previous delivery (ICD-10 - O34.211) Jan, 21 weeks gestation of (ICD-10 - Z3A.21 ) PLAN OF TREATMENT Medication Medication Name Sig Start Date Stop Date Labetalol HCl 200 MG 1 tablet Orally once daily for 30 Days Treatment Notes Test Name Order Date CBC - Complete Blood Count 2021-01-12 Type and Screen (D Rh Antibody Screen) 2021-01-12 Glucose Challenge Test 1 Hour 2021-01-12 CHLAMYDIA & GC DNA AMPLIFICAT 2021-01-12 Next Appt Details 4 Weeks Reason:pn Provider Name:Kristin Hope, 2021-02-16 11:00:00 AM, [address] [facility], , [place], [address], Follow Up:4 Weekspn Insurance Providers Payer Name Payer Address Payer Phone Insured Name Patient Relati onship to Insured Coverage Start Date Coverage End Date BC/Rozina GROVES [address] [employer] [facility] [address] [address]
--- OUTSIDE RECORDS SUMMARY | 2021-04-05 20:35 | CCD ---
Author Author [facility] Organization [facility] Address Unknown Phone Unavailable Care Team Providers Care Tomato Pulper Operator Name Role Phone Cali Britton Unavailable PROBLEMS Type Condition ICD9-CM Code JRT22-SL Code Onset Dates Condition S tatus W/U Status Risk SNOMED Code Notes Problem Lumbar degenerative disc disease M51.36 Active conf irmed 39091291 Problem PCOS (polycystic ovarian syndrome) E28.2 Activ e confirmed 45945331 Problem Hypothyroidism (acquired) E03.9 Active confirmed 750516837 Problem Lumbago with sciatica, right side M54.41 Active confirmed 296184917 Problem Other chronic pain G89.29 Active confirmed 8 8649222 Problem Essential hypertension I10 Active confirmed 48758325 Problem Hypothyroidism, unspecified type E03.9 Active conf irmed 36682793 Problem 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 Active confirmed 402415773946019 Problem BMI 45.0-49.9, adult Z68.42 Active confirmed 448962581 Problem Morbid obesity due to excess calories E66.01 Ac tive confirmed 024128679 Problem Hypertriglyceridemia E78.1 Active confirmed 869112421 Problem Supervision of other normal Z34.80 Ac tive confirm 760645160 Problem Essential hypertension affecting in se cond trimester O10.012 Active confirmed 88707604 Problem Obesity affecting in second trimester O9 9.212 Active confirmed 811846560162 ALLERGIES No Known Allergies ENCOUNTERS from 1980 to 2021-02-17 Encounter Location Date Provider Diagnosis [facility] [address] [facility] [phone] [place] [address] Feb, Cali Britton IMMUNIZATIONS No Information SOCIAL HISTORY Tobacco Use: Social History Observation Description Date Details (start date - stop date) Never Smoker Sex Assigned At : Social History Observation Description Sex Assigned At Unknown Education: Question Answer Notes Level of Education: Finished College Audit Question Answer Notes Total Score: 0 Interpretation: Alcohol Education Language: Question Answer Notes Languages spoken: Mexican Jain: Question Answer Notes Jain 08 [employer] Sexual Hx: Question Answer Notes Had sex [...] REASON FOR REFERRAL No Information VITAL SIGNS No information MEDICATIONS Medication SIG (Take, Route, Frequency, Duration) Notes Start Da te End Date Status Folic Acid Active Labetalol HCl 200 MG 1 tablet Orally once daily for 30 Days Active Tylenol 325 MG 1 capsule as needed Orally every 4 hrs Active Ciales-Linyah 0.25-35 MG-MCG 1 tablet Orally Once a day for 90 day (s) Jun, Not-Taking Levothyroxine Sodium 100 MCG 1 tablet on an empty stom ach in the morning Orally Once a day for 30 day(s) Active Chlorthalidone 25 MG 1 tablet in the morning with food Orally Once a day for 30 day(s) Dec, Not-Taking Sertraline HCl 50 MG 1 tab Orally Daily for 90 day(s) Active Active metFORMIN HCl 1000 MG 1 tablet with a meal Orally Once a day for 90 day(s) Aug, Active Phentermine HCl 37.5 MG 1 capsule Orally Once a day for 30 days May, Not-Taking PROCEDURES No Information RESULTS No Results REASON FOR VISIT 05/01/21 SURG AUTH MEDICAL (GENERAL) HISTORY Type Description Date Medical [...] No Information FUNCTIONAL STATUS No Information ASSESSMENTS No Information PLAN OF TREATMENT Next Appt Details Provider Name:Cali Britton, 2021-04-10 01:00:00 PM, [address] [place] [address], , [place], [address], Provider Name:Cali Britton, 2021-05-01 07:30:00 AM, [address] [place] [address], , [place], [address], Provider Name:Kristin Hope, 2021-05-01 07:30:00 AM, [address] [place] [address], , [place], [address], Provider Name:Cali Britton, 2021-05-16 11:45:00 AM, [address] [place] [address], , [place], [address], Insurance Providers Payer Name Payer Address Payer Phone Insured Name Patient Relati onship to Insured Coverage Start Date Coverage End Date BC/BS, [employer] [address] [facility] [address] [address]
--- OUTSIDE RECORDS SUMMARY | 2021-04-05 20:35 | CCD ---
Author Author [facility] Organization [facility] Address Unknown Phone Unavailable Care Team Providers Care Program Development Manager Name Role Phone Marcie Turner Unavailable PROBLEMS Type Condition ICD9-CM Code [id number] Code Onset Dates Condition S tatus W/U Status Risk SNOMED Code Notes Problem Lumbar degenerative disc disease M51.36 Active conf irmed 34570171 Problem PCOS (polycystic ovarian syndrome) E28.2 Activ e confirmed 23975371 Problem Hypothyroidism (acquired) E03.9 Active confirmed 407060295 Problem Lumbago with sciatica, right side M54.41 Active confirmed 722711835 Problem Other chronic pain G89.29 Active confirmed 8 3852748 Problem Essential hypertension I10 Active confirmed 64807883 Problem Hypothyroidism, unspecified type E03.9 Active conf irmed 99343398 Problem 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 Active confirmed 754221857719665 Problem BMI 45.0-49.9, adult Z68.42 Active confirmed 803196536 Problem Morbid obesity due to excess calories E66.01 Ac tive confirmed 626393318 Problem Hypertriglyceridemia E78.1 Active confirmed 722039084 Problem Supervision of other normal Z34.80 Ac tive confirm 836293018 Problem Essential hypertension affecting in se cond trimester O10.012 Active confirmed 42387356 Problem Obesity affecting in second trimester O9 9.212 Active confirmed 763497598304 ALLERGIES No Known Allergies ENCOUNTERS from 1980 to 2021-02-21 Encounter Location Date Provider Diagnosis [facility] [address] [place] [phone] Feb, 2021 Marcie Turner Hypothyroidism (acquired) E03.9 IMMUNIZATIONS No Information SOCIAL HISTORY Tobacco Use: Social History Observation Description Date Details (start date - stop date) Never Smoker Sex Assigned At : Social History Observation Description Sex Assigned At Unknown Education: Question Answer Notes Level of Education: Finished College Audit Question Answer Notes Total Score: 0 Interpretation: Alcohol Education Language: Question Answer Notes Languages spoken: Citizen Of [place] Mosque: Question Answer Notes Mosque 08 L[employer] Sexual Hx: Question Answer Notes Had sex [...] as needed Orally every 4 hrs Active Phentermine HCl 37.5 MG 1 capsule Orally Once a day for 30 days May, Not-Taking [place]-Linyah 0.25-35 MG-MCG 1 tablet Orally Once a day for 90 day (s) Jun, Not-Taking Chlorthalidone 25 MG 1 tablet in the morning with food Orally Once a day for 30 day(s) Dec, Not-Taking Sertraline HCl 50 MG 1 tab Orally Daily for 90 day(s) Active Active metFORMIN HCl 1000 MG 1 tablet with a meal Orally Once a day for 90 day(s) Aug, Active Levothyroxine Sodium 100 MCG 1 tablet on an empty stom ach in the morning Orally Once a day for 90 days Active PROCEDURES No Information RESULTS No Results REASON FOR VISIT levothyroxine MEDICAL (GENERAL) HISTORY Type Description Date Medical [...] Notes Treatment Notes Treatm ent Clinical Notes Feb, Hypothyroidism (acquired) (ICD-10 - E03.9) PLAN OF TREATMENT Medication Medication Name Sig Start Date Stop Date Levothyroxine Sodium 100 MCG 1 tablet on an empty stom ach in the morning Orally Once a day for 90 days Next Appt Details Provider Name:Saloni Carcamo, 2021-03-16 10:20:00 AM, [address] [place] [address], , [place], [address], Provider Name:Cali Britton, 2021-04-10 01:00:00 PM, [address] [place] [address], , [place], [address], Provider Name:Cali Britton, 2021-05-01 07:30:00 AM, [address] [place] [address], , [place], [address], Provider Name:Kristin Hope, 2021-05-01 07:30:00 AM, [address] [place] [address], , [place], [address], Provider Name:Cali Britton, 2021-05-16 11:45:00 AM, [address] [place] [address], , [place], [address], Insurance Providers Payer Name Payer Address Payer Phone Insured Name Patient Relati onship to Insured Coverage Start Date Coverage End Date JORDYN/YANELI, [employer] [address] [facility] [address] [address]
--- OUTSIDE RECORDS SUMMARY | 2021-04-05 20:35 | CCD ---
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 Active confirmed 163142931110039 Problem Morbid obesity due to excess calories E66.01 Ac tive confirmed 986946429 Problem Essential hypertension I10 Active confirmed 58064527 Problem Hypertriglyceridemia E78.1 Active confirmed 981610569 Problem Supervision of other normal Z34.80 Ac tive confirm 463784791 Problem Chronic hypertension affecting O10.919 Active confirmed 10442755 Problem Other chronic pain G89.29 Active confirmed 8 2125782 Problem Obesity complicating , third trimester O9 9.213 Active confirmed 678656020642 Problem Lumbago with sciatica, right side M54.41 Active confirmed 752712724 Problem Hypothyroidism, unspecified type E03.9 Active conf irmed 38680113 Problem BMI 45.0-49.9, adult Z68.42 Active confirmed 831810812 Problem Essential hypertension affecting in se cond trimester O10.012 Active confirmed 37211886 Problem Obesity affecting in second trimester O9 9.212 Active confirmed 336308601380 ALLERGIES No Known Allergies ENCOUNTERS from 1980 to 2021-03-24 Encounter Location Date Provider Diagnosis [facility] [address] [place] [phone] Mar, 2021 Marcie Turner PCOS (polycystic ovarian syndrome) E28.2 IMMUNIZATIONS No Information SOCIAL HISTORY Tobacco Use: Social History Observation Description Date Details (start date - stop date) Never Smoker Sex Assigned At : Social History Observation Description Sex Assigned At Unknown Education: Question Answer Notes Level of Education: Finished College Audit Question Answer Notes Total Score: 0 Interpretation: Alcohol Education Language: Question Answer Notes Languages spoken: Lithuanian Restorationist: Question Answer Notes Restorationist 08 Taoism Drug and Alcohol Question Answer Notes Total [...] Notes Start Da te End Date Status Huntington-Linyah 0.25-35 MG-MCG 1 tablet Orally Once a day for 90 day (s) Jun, Not-Taking Test Strips - as directed O24.419 four times daily for 30 Days Mar, Active Folic Acid Active Labetalol HCl 200 MG 1 tablet Orally once daily for 30 Days Active metFORMIN HCl 1000 MG 1 tablet with a meal Orally Once a day for 90 day(s) Aug, Active Phentermine HCl 37.5 MG 1 capsule Orally Once a day for 30 days May, Not-Taking Chlorthalidone 25 MG 1 tablet in the morning with food Orally Once a day for 30 day(s) Dec, Not-Taking Levothyroxine Sodium 100 MCG 1 tablet on an empty stom ach in the morning Orally Once a day for 90 days Active Lancets - as directed O24.419 four times daily for 30 Days Mar, Active Tylenol 325 MG 1 capsule as needed Orally every 4 hrs Active Alcohol Wipes 70 % as directed O24.419 topically four times virgil y for 30 Days Mar, Active Sertraline HCl 50 MG 1 tab Orally Daily for 90 day(s) Active Active Glucose Monitor - as directed O24.419 four times daily for 30 Da ys Mar, Active PROCEDURES No Information RESULTS No Results REASON FOR VISIT refills MEDICAL (GENERAL) HISTORY Type Description Date Medical [...] Notes Treatment Notes Treatm ent Clinical Notes Mar, PCOS (polycystic ovarian syndrome) (ICD-10 - E28 .2) PLAN OF TREATMENT Medication Medication Name Sig Start Date Stop Date metFORMIN HCl 1000 MG 1 tablet with a meal Orally Once a day for 90 day(s) Aug, Sertraline HCl 50 MG 1 tab Orally Daily for 90 day(s) Alcohol Wipes 70 % as directed O24.419 topically four times daily for 30 Days Mar, Test Strips - as directed O24.419 four times daily for 30 Days Mar, Glucose Monitor - as directed O24.419 four times daily for 30 Da ys Mar, Lancets - as directed O24.419 four times daily for 30 Days Mar, Next Appt Details Provider Name:Ayanna Kidd, 2021-03- 2 03:20:00 PM, [address] [place], [place] [address], [place], [address], Provider Name:Cali Britton, 2021-04-10 01:00:00 PM, [address] [place], [place] [address], [place], [address], Provider Name:Cali Britton, 2021-05-01 07:30:00 AM, [address] [place] [address], [place], [address], Provider Name:Kristin Hope, 2021-05-01 07:30:00 AM, [address] [place], [place] [address], [place], [address], Provider Name:Cali Britton, 2021-05-16 11:45:00 AM, [address] [place], [place] [address], [place], [address], Provider Name:Cali Britton, 2021-06-27 01:15:00 PM, [address] [facility], , [place], [address], Insurance Providers Payer Name Payer Address Payer Phone Insured Name Patient Relati onship to Insured Coverage Start Date Coverage End Date BC/BS, [employer] [address] [place] [address] [address] self
--- OUTSIDE RECORDS SUMMARY | 2021-04-05 20:35 | CCD ---
Author Author [facility] Organization [facility] Address Unknown Phone Unavailable Care Team Providers Care Civil Division Commander Deputy Sheriff Name Role Phone Ayanna Kidd Unavailable PROBLEMS Type Condition ICD9-CM Code [id number] Code Onset Dates Condition S tatus W/U Status Risk SNOMED Code Notes Problem Lumbar degenerative disc disease M51.36 Active conf irmed 94116262 Problem PCOS (polycystic ovarian syndrome) E28.2 Activ e confirmed 89048243 Problem Hypothyroidism (acquired) E03.9 Active confirmed 298980725 Problem 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 Active confirmed 780097251359065 Problem Morbid obesity due to excess calories E66.01 Ac tive confirmed 934745305 Problem Other chronic pain G89.29 Active confirmed 8 9084692 Problem Lumbago with sciatica, right side M54.41 Active confirmed 719835989 Problem Supervision of other normal Z34.80 Ac tive confirm 209577013 Problem Essential hypertension affecting in se cond trimester O10.012 Active confirmed 61191038 Problem Obesity affecting in second trimester O9 9.212 Active confirmed 085739217512 Problem Hypertension affecting in third trimester O16.3 Active confirmed 85671285472759 Problem Hypertriglyceridemia E78.1 Active confirmed 458366178 Problem Gastroesophageal reflux dise ase, unspecified whether esophagitis present K21.9 Active confirmed 402702458 Problem Essential hypertension I10 Active confirmed 03239959 Problem Hypothyroidism, unspecified type E03.9 Active conf irmed 30128565 Problem BMI 45.0-49.9, adult Z68.42 Active confirmed 651034460 Problem Obesity complicating , third trimester O9 9.213 Active confirmed 604898658132 Problem Chronic hypertension affecting O10.919 Active confirmed 05922256 ALLERGIES No Known Allergies ENCOUNTERS from 1980 to 2021-04-03 Encounter Location Date Provider Diagnosis [facility] [address] [facility] [phone] [place] [address] Mar, Ayanna Kidd IMMUNIZATIONS No Information SOCIAL HISTORY Tobacco Use: Social History Observation Description Date Details (start date - stop date) Never Smoker Sex Assigned At : Social History Observation Description Sex Assigned At Unknown Education: Question Answer Notes Level of Education: Finished College Audit Question Answer Notes Total Score: 0 Interpretation: Alcohol Education Language: Question Answer Notes Languages spoken: Niuean Scientology: Question Answer Notes Scientology 08 [facility] Drug and Alcohol Question Answer Notes Total [...] Notes Start Da te End Date Status Levothyroxine Sodium 100 MCG 1 tablet on an empty stom ach in the morning Orally Once a day for 90 days Active Chlorthalidone 25 MG 1 tablet in the morning with food Orally Once a day for 30 day(s) Dec, Not-Taking Active Folic Acid Active metFORMIN HCl 1000 MG 1 tablet with a meal Orally Once a day for 90 day(s) Aug, Active Lancets - as directed O24.419 four times daily for 30 Days Mar, Active Labetalol HCl 200 MG 1 tablet Orally once daily for 30 Days Active Tylenol 325 MG 1 capsule as needed Orally every 4 hrs Active Test Strips - as directed O24.419 four times daily for 30 Days Mar, Active Phentermine HCl 37.5 MG 1 capsule Orally Once a day for 30 days May, Not-Taking Alcohol Wipes 70 % as directed O24.419 topically four times virgil y for 30 Days Mar, Active Sertraline HCl 50 MG 1 tab Orally Daily for 90 day(s) Active [place]-Linyah 0.25-35 MG-MCG 1 tablet Orally Once a day for 90 day (s) Jun, Not-Taking Glucose Monitor - as directed O24.419 four times daily for 30 Da ys Mar, Active PROCEDURES No Information RESULTS No Results REASON FOR VISIT NEEDS 1 WK PN APPT MEDICAL (GENERAL) HISTORY Type Description Date Medical [...] PLAN OF TREATMENT Next Appt Details Provider Name:Ayanna Kidd, 2021-03-11 7 03:00:00 PM, [address] [place] [address], [place], [place], [address] [place] [address], Provider Name:Cali Britton, 2021-04-10 01:00:00 PM, [address] [place] [address], [place], [address], Provider Name:Cali Britton, 2021-04-17 08:45:00 AM, [address] [place] [address], [place], [address], Provider Name:Cali Britton, 2021-04-24 08:45:00 AM, [address] [place] [address], [place], [address], Provider Name:Cali Britton, 2021-05-01 07:30:00 AM, [address] [place] [address], [place], [address], Provider Name:Kristin Hope, 2021-05-01 07:30:00 AM, [address] [place] [address], [place], [address], Provider Name:Cali Britton 2021-05-16 11:45:00 AM, [address] [place] [address], [place], [address], Provider Name:Cali Britton, 2021-06-27 01:15:00 PM, [address] [facility] [address], , [place], [address], Insurance Providers Payer Name Payer Address Payer Phone Insured Name Patient Relati onship to Insured Coverage Start Date Coverage End Date MEDICAID [employer] [address] [facility] [address] YVAN MCKNIGHT self BCBS [facility] PPO [id number] [facility] [place] [facility] [place] [address] YVAN MCKNIGHT self
--- OUTSIDE RECORDS SUMMARY | 2021-04-05 20:35 | CCD ---
Author Author [facility] Organization [facility] Address Unknown Phone Unavailable Care Team Providers Care Mathematics Professor Name Role Phone Marcie Turner Unavailable PROBLEMS Type Condition ICD9-CM Code [id number] Code Onset Dates Condition S tatus W/U Status Risk SNOMED Code Notes Problem Morbid obesity due to excess calories E66.01 Ac tive confirmed 761923031 Problem PCOS (polycystic ovarian syndrome) E28.2 Activ e confirmed 89452513 Problem Hypothyroidism (acquired) E03.9 Active confirmed 615879483 Problem Hypertriglyceridemia E78.1 Active confirmed 275815052 Problem Lumbar degenerative disc disease M51.36 Active conf irmed 12021945 Problem Supervision of other normal Z34.80 Ac tive confirm 082386099 Problem 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 Active confirmed 906903589709670 Problem Lumbago with sciatica, right side M54.41 Active confirmed 102456855 Problem Other chronic pain G89.29 Active confirmed 8 1499782 Problem Essential hypertension I10 Active confirmed 26854524 ALLERGIES No Known Allergies ENCOUNTERS from 1980 to 2021-01-27 Encounter Location Date Provider Diagnosis [facility] [address] [place] [address] Jan, Marcie Turner IMMUNIZATIONS No Information SOCIAL HISTORY Tobacco Use: Social History Observation Description Date Details (start date - stop date) Never Smoker Sex Assigned At : Social History Observation Description Sex Assigned At Unknown Education: Question Answer Notes Level of Education: Finished College Audit Question Answer Notes Total Score: 0 Interpretation: Alcohol Education Language: Question Answer Notes Languages spoken: Macedonian Taoist: Question Answer Notes Taoist 08 Bahai Sexual Hx: Question Answer Notes Had sex [...] Notes Start Da te End Date Status [place]-Linyah 0.25-35 MG-MCG 1 tablet Orally Once a [...] Information RESULTS No Results REASON FOR VISIT refill MEDICAL (GENERAL) HISTORY Type Description Date Medical [...] Information ASSESSMENTS No Information PLAN OF TREATMENT Medication Medication Name Sig Start Date Stop Date Labetalol HCl 200 MG 1 tablet Orally once daily for 30 Days Next Appt Details Provider Name:Kristin Hope, 2021-02-16 11:00:00 AM, [address] [facility], , [place], [address], Insurance Providers Payer Name Payer Address Payer Phone Insured Name Patient Relati onship to Insured Coverage Start Date Coverage End Date JORDYN/Rozina GROVES [address] [address] YVAN MCKNIGHT
--- OUTSIDE RECORDS SUMMARY | 2021-04-05 20:35 | CCD ---
Author Author [facility] Organization [facility] Address Unknown Phone Unavailable Care Team Providers Care Cardiac Rehabilitation Specialist Name Role Phone Kristin Hope Unavailable PROBLEMS Type Condition ICD9-CM Code EXH71-UY Code Onset Dates Condition S tatus W/U Status Risk SNOMED Code Notes Problem Lumbar degenerative disc disease M51.36 Active conf irmed 66297377 Problem PCOS (polycystic ovarian syndrome) E28.2 Activ e confirmed 84186273 Problem Hypothyroidism (acquired) E03.9 Active confirmed 720912540 Problem Lumbago with sciatica, right side M54.41 Active confirmed 585098148 Problem Other chronic pain G89.29 Active confirmed 8 0056501 Problem Essential hypertension I10 Active confirmed 37209633 Problem Hypothyroidism, unspecified type E03.9 Active conf irmed 45988793 Problem 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 Active confirmed 075351377487864 Problem BMI 45.0-49.9, adult Z68.42 Active confirmed 013049384 Problem Morbid obesity due to excess calories E66.01 Ac tive confirmed 889933324 Problem Hypertriglyceridemia E78.1 Active confirmed 847852433 Problem Supervision of other normal Z34.80 Ac tive confirm 442072473 Problem Essential hypertension affecting in se cond trimester O10.012 Active confirmed 77387801 Problem Obesity affecting in second trimester O9 9.212 Active confirmed 030308144307 ALLERGIES No Known Allergies ENCOUNTERS from 1980 to 2021-03-06 Encounter Location Date Provider Diagnosis [facility] [address] [facility] [phone] [place] [address] Feb, Kristin Hope Maternal care due to low transverse uterine scar from previous delivery O34.211 ; Endocrine, nutritional and metabolic diseases complicating , second trimester O99.282 ; Supervision of elderly multigravida in second trimester O09.522 ; 26 weeks gestation of Z3A.26 ; Essential hypertension affecting in second trimester O10.012 ; Obesity affecting in second trimester O99.212 ; Morbid obesity due to excess calories E66.01 ; Hypothyroidism, unspecified type E03.9 and BMI 45.0-49.9, adult Z68.42 IMMUNIZATIONS No Information SOCIAL HISTORY Tobacco Use: Social History Observation Description Date Details (start date - stop date) Never Smoker Sex Assigned At : Social History Observation Description Sex Assigned At Unknown Education: Question Answer Notes Level of Education: Finished College Audit Question Answer Notes Total Score: 0 Interpretation: Alcohol Education Language: Question Answer Notes Languages spoken: Indonesian Baptism: Question Answer Notes Baptism 08 Yazidism Sexual Hx: Question Answer Notes Had sex [...] FOR REFERRAL No Information VITAL SIGNS Weight 291 lbs Feb, Weight-kg 132 kg Feb, Height 5'7" in Feb, BMI 45.577 kg/m2 Feb, Blood pressure systolic 120 mm Hg Feb, Blood pressure diastolic 70 mm Hg Feb, MEDICATIONS Medication SIG (Take, Route, Frequency, Duration) Notes Start Da te End Date Status Folic Acid Active Labetalol HCl 200 MG 1 tablet Orally once daily for 30 Days Active Tylenol 325 MG 1 capsule as needed Orally every 4 hrs Active Phentermine HCl 37.5 MG 1 capsule Orally Once a day for 30 days May, Not-Taking [place]-Linyah 0.25-35 MG-MCG 1 tablet Orally Once a day for 90 day (s) Jun, Not-Taking Chlorthalidone 25 MG 1 tablet in the morning with food Orally Once a day for 30 day(s) 13 Christos, 2020 Not-Taking Sertraline HCl 50 MG 1 tab Orally Daily for 90 day(s) Active Active metFORMIN HCl 1000 MG 1 tablet with a meal Orally Once a day for 90 day(s) Aug, Active Levothyroxine Sodium 100 MCG 1 tablet on an empty stom ach in the morning Orally Once a day for 90 days Active PROCEDURES No Information RESULTS Component Value Reference Range Pre Eclampsia Profile Reviewed date:02/26/2021 18:51:30 Interpretation: Performing Lab:[facility] LABORATORY [address] [place] [address] , ,[facility]01 CREATININE FOR GFR 0.70 0.55-1.30 GLOMERULAR FILTRATION RATE > 60.0 >58 AST/SGOT 12 7-37 ALT/SGPT 14 12-78 LDH LACTATE DEHYDROGENASE 110 84-246 BILIRUBIN,TOTAL 0.2 0.2-1.0 URIC ACID 5.3 2.6-6.0 CREATININE,RANDOM URINE Reviewed date:02/26/2021 18:51:35 Interpretation: Performing Lab:[facility] LABORATORY [address] [place] [address] , ,[place] [address] CREATININE,RANDOM URINE 310.0 FREE T4 Reviewed date:02/27/2021 14:34:02 Interpretation: Performing Lab:[facility] LABORATORY [address] [place] [address] , ,[place] [address] FREE T4 0.97 0.76-1.46 TSH Reviewed date:02/27/2021 14:33:59 Interpretation: Performing Lab:[facility] LABORATORY [address] [place] [address] , ,[facility]01 THYROID STIMULATING HORMONE 0.610 0.358-3.740 TOTAL PROTEIN,RANDOM URINE Reviewed date:02/28/2021 15:12:33 Interpretation: Performing Lab:[facility] LABORATORY [address] [facility] [address] , [place] [address] TOTAL PROTEIN,RANDOM URINE 105.9 0.0-12.0 REASON FOR VISIT 4 WK PN MEDICAL (GENERAL) HISTORY Type Description Date [...] Treatment Notes Treatm ent Clinical Notes Feb, Maternal care due to low tra nsverse uterine scar from previous delivery (ICD-10 - O34.211) Feb, Endocrine, nutritional and m etabolic diseases complicating , second trimester (ICD-10 - O99.282) Feb, Supervision of elderly multi in second trimester (ICD-10 - O09.522) Feb, 26 weeks gestation of (ICD-10 - Z3A.26 ) Feb, Essential hypertension affec ting in second trimester (ICD-10 - O10.012) Feb, Obesity affecting in second tr imester (ICD-10 - O99.212) Feb, Morbid obesity due to excess calories (ICD-10 - E66.01) Feb, Hypothyroidism, unspecified type (ICD-10 - E03.9 ) Feb, BMI 45.0-49.9, adult (ICD-10 - Z68.42) PLAN OF TREATMENT Medication Medication Name Sig Start Date Stop Date Levothyroxine Sodium 100 MCG 1 tablet on an empty stom ach in the morning Orally Once a day for 90 days Treatment Notes Test Name Order Date FREE T4 & TSH PANEL 2021-02-16 [facility]BC OBS LIMITED 2021-02-16 Next Appt Details 3 weeks Reason:COB Provider Name:Saloni Carcamo, 2021-03-16 10:20:00 AM, [address] [place] [address] , [place], [address], Provider Name:Cali Britton, 2021-04-10 01:00:00 PM, [address] [place] [address] , [place], [address], Provider Name:Cali Britton, 2021-05-01 07:30:00 AM, [address] [place] [address], , [place], [address], Provider Name:Kristin Hope, 2021-05-01 07:30:00 AM, [address] [place] [address], , [place], [address], Provider Name:Cali Britton, 2021-05-16 11:45:00 AM, [address] [place] [address], , [place], [address], Follow Up:3 weeksCOB Insurance Providers Payer Name Payer Address Payer Phone Insured Name Patient Relati onship to Insured Coverage Start Date Coverage End Date BC/BS, [place] [address] [facility] [address] YVAN MCKNIGHT
--- OUTSIDE RECORDS SUMMARY | 2021-04-05 20:35 | CCD ---
Author Author [facility] Organization [facility] Address Unknown Phone Unavailable Care Team Providers Care Weatherization Administrator Name Role Phone Marcie Turner Unavailable PROBLEMS Type Condition ICD9-CM Code [id number] Code Onset Dates Condition S tatus W/U Status Risk SNOMED Code Notes Problem Lumbar degenerative disc disease M51.36 Active conf irmed 00271908 Problem PCOS (polycystic ovarian syndrome) E28.2 Activ e confirmed 06951738 Problem Hypothyroidism (acquired) E03.9 Active confirmed 515187144 Problem 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 Active confirmed 455023019952595 Problem Morbid obesity due to excess calories E66.01 Ac tive confirmed 781739135 Problem Other chronic pain G89.29 Active confirmed 8 8714295 Problem Lumbago with sciatica, right side M54.41 Active confirmed 230185997 Problem Supervision of other normal Z34.80 Ac tive confirm 562552520 Problem Essential hypertension affecting in se cond trimester O10.012 Active confirmed 41113941 Problem Obesity affecting in second trimester O9 9.212 Active confirmed 769422918356 Problem Hypertension affecting in third trimester O16.3 Active confirmed 45392787857185 Problem Hypertriglyceridemia E78.1 Active confirmed 542387201 Problem Gastroesophageal reflux dise ase, unspecified whether esophagitis present K21.9 Active confirmed 376372606 Problem Essential hypertension I10 Active confirmed 21992984 Problem Hypothyroidism, unspecified type E03.9 Active conf irmed 12497583 Problem BMI 45.0-49.9, adult Z68.42 Active confirmed 482494304 Problem Obesity complicating , third trimester O9 9.213 Active confirmed 105877204793 Problem Chronic hypertension affecting O10.919 Active confirmed 86738368 ALLERGIES No Known Allergies ENCOUNTERS from 1980 to 2021-04-03 Encounter Location Date Provider Diagnosis [address] [phone] [place] [address] Mar, Marcie Turner IMMUNIZATIONS No Information SOCIAL HISTORY Tobacco Use: Social History Observation Description Date Details (start date - stop date) Never Smoker Sex Assigned At : Social History Observation Description Sex Assigned At Unknown Education: Question Answer Notes Level of Education: Finished College Audit Question Answer Notes Total Score: 0 Interpretation: Alcohol Education Language: Question Answer Notes Languages spoken: Cuban Protestant: Question Answer Notes Protestant 08 Christianity Drug and Alcohol Question Answer Notes Total [...] tab Orally Daily for 90 day(s) Active [place]-Linyah 0.25-35 MG-MCG 1 tablet Orally Once a day for 90 day (s) Jun, Not-Taking Glucose Monitor - as directed O24.419 four times daily for 30 Da ys Mar, Active PROCEDURES No Information RESULTS No Results REASON FOR VISIT swollen [place] MEDICAL (GENERAL) HISTORY Type Description Date Medical [...] Provider Name:Ayanna Kidd, 2021-03-11 7 03:00:00 PM, [address] [place] [address], [place], [place], [address] [place] [address], Provider Name:Cali Britton, 2021-04-10 01:00:00 PM, [address] [place] [address], [address] [place] [address], [place], [place], [address] [place] [address], Provider Name:Cali Britton, 2021-04-17 08:45:00 AM, [address] [place] [address], [place], [address], Provider Name:Cali Britton, 2021-04-24 08:45:00 AM, [address] [place] [address], [place], [address], Provider Name:Cali Britton, 2021-05-01 07:30:00 AM, [address] [place] [address], [place], [address], Provider Name:Kristin Hope, 2021-05-01 07:30:00 AM, [address] [place] [address], [place], [address], Provider Name:Cali Britton 2021-05-16 11:45:00 AM, [address] [place] [address], [place], [address], Provider Name:Cali Britton, 2021-06-27 01:15:00 PM, [address] [facility], , [place], [address], Insurance Providers Payer Name Payer Address Payer Phone Insured Name Patient Relati onship to Insured Coverage Start Date Coverage End Date [id number] [place] [address] YVAN MCKNIGHT self MEDICAID [employer] [address] [facility] [id number] YVAN MCKNIGHT self
--- OUTSIDE RECORDS SUMMARY | 2021-04-05 20:36 | CCD ---
Author Author [facility] Organization [facility] Address Unknown Phone Unavailable Care Team Providers Care Dean Of Student Services Name Role Phone Maring, Francisco PA Unavailable Unavailable Maring, Francisco PA Unavailable Unavailable Maring, Francisco PA Unavailable Unavailable Maring, Francisco PA Unavailable Unavailable Maring, Francisco PA Unavailable Unavailable Maring, Francisco PA Unavailable Unavailable Maring, Francisco PA Unavailable Unavailable Maring, Francisco PA Unavailable Unavailable Maring, Francisco PA Unavailable Unavailable Maring, Francisco PA Unavailable Unavailable Maring, Francisco PA Unavailable Unavailable Maring, Francisco PA Unavailable Unavailable Maring, Francisco PA Unavailable Unavailable Maring, Francisco PA Unavailable Unavailable Maring, Francisco PA Unavailable Unavailable Maring, Francisco PA Unavailable Unavailable Re-disclosure Warning The records that you are about to access may contain information from federally-assisted alcohol or drug abuse programs. If such information is present, then the following federally mandated warning applies: This information has been disclosed to you from records protected by federal confidentiality rules (42 CFR part 2). The federal rules prohibit you from making any further disclosure of this information unless further disclosure is expressly permitted by the written consent of the person to whom it pertains or as otherwise permitted by 42 CFR part 2. A general authorization for the release of medical or other information is NOT sufficient for this purpose. The Federal rules restrict any use of the information to criminally investigate or prosecute any alcohol or drug abuse patient.The records that you are about to access may contain highly sensitive health information, the redisclosure of which is protected by Article 27-F of the [facility] Public Health law. If you continue you may have access to information: Regarding HIV / AIDS; Provided by facilities licensed or operated by the [facility] Office of Mental Health; or Provided by the [facility] Office for People With Developmental Disabilities. If such information is present, then the following [facility] mandated warning applies: This information has been disclosed to you from confidential records which are protected by state law. State law prohibits you from making any further disclosure of this information without the specific written consent of the person to whom it pertains, or as otherwise permitted by law. Any unauthorized further disclosure in violation of state law may result in a fine or assisted sentence or both. A general authorization for the release of medical or other information is NOT sufficient authorization for further disc losure. Family History Family Member Name Family Member Gender Family Member Status Date o f Status Description Data Source(s) Unknown Unknown Problem MEDENT ([facility]) Unknown Female Problem [facility] Unknown Female Problem MEDENT ([facility]) Encounters Encounter Providers Location Date Indications Data Source(s ) Unknown [address] [facility], [facility] [address] 04/03/2021 12:00:00 AM EDT eCW1 ([facility]) ([facility]) [facility] [address] [place] [address] 03/31/2021 12:00:00 AM EDT eCW1 ([facility]) [place] [address] [facility] [address] 03/31/2021 12:00:00 AM EDT eCW1 ([facility]) [place] [address] [facility] [address] 03/23/2021 12:00:00 AM EDT eCW1 ([facility]) [place] [address] [facility] [address] 02/20/2021 12:00:00 AM EDT eCW1 ([facility]) [place] [address] [facility] [address] 02/17/2021 12:00:00 AM EDT eCW1 ([facility]) (WC ESTOB) W[facility] Est OB [address] [place] [address] 02/16/2021 12:00:00 AM EDT eCW1 ([facility]) [place] [address] [facility] [address] 01/27/2021 12:00:00 AM EDT eCW1 ([facility]) (WC ESTOB) [facility] [address] [place] [address] 01/12/2021 12:00:00 AM EDT eCW1 ([facility]) (WC EST[facility]) [facility] [address] [place] [address] 12/16/2020 12:00:00 AM EDT eCW1 ([facility]) [place] [address] [facility] [address] 11/29/2020 12:00:00 AM EDT eCW1 ([facility]) (WC ESTOB) [facility] [address] [place] [address] 11/14/2020 12:00:00 AM EDT eCW1 ([facility]) (WC ESTOB) [facility] [address] [place] [address] 10/17/2020 12:00:00 AM EDT eCW1 ([facility]) Outpatient Attender: Francisco HAHN 08/07/19 12:08:36 PM EST - 08/07/2020 12:52:45 PM EST DocuTap ([facility] ) [place] [address] [facility] [address] 07/04/2020 12:00:00 AM EST eCW1 ([facility]) Outpatient [address] [facility] [address] 05/27/2020 12:00:00 AM EST eCW1 ([facility]) [place] [address] [facility] [address] 05/09/2020 12:00:00 AM EST eCW1 ([facility]) [place] [address] [facility] [address] 04/14/2020 12:00:00 AM EST eCW1 ([facility]) Immunizations Vaccine Date Status Description Data Source(s) COVID-19 VACCINE Pfizer 01/13/2021 12:00:00 AM EDT completed [facility] Vaccine Series Complete: YESThis Data wa s Submitted to [facility] Via EXENDIS. COVID-19 VACC, MRNA(PFIZER)/PF 01/13/2021 12:00:00 AM EDT completed [facility] COVID-19 VACCINE Pfizer 12/22/2020 12:00:00 AM EDT completed [facility] Vaccine Series Complete: NOThis Data was Submitted to [facility] Via EXENDIS. COVID-19 VACCINE Pfizer 12/22/2020 12:00:00 AM EDT completed [facility] Vaccine Series Complete: NOThis Data was Submitted to [facility] Via EXENDIS. COVID-19 VACC, MRNA(Zynga)/PF 12/22/2020 12:00:00 AM EDT completed [facility] Medications Medication Brand Name Start Date Product Form Dose Route Admi nistrative Instructions Pharmacy Instructions Status Indications Reaction Description Data Source(s) 50 mg 03/25/2021 12:00:00 AM EDT tablet 90 TAKE ONE TABLET BY MOUTH DAILY TAKE ONE TABLET BY MOUTH DAILY SOLD: 03/29/2021 [facility] 1,000 mg 03/25/2021 12:00:00 AM EDT tablet 90 TAKE ONE TABLET BY MOUTH WITH A MEAL ONCE A DAY TAKE ONE TABLET BY MOUTH WITH A MEAL ONCE A DAY SOLD: 03/29/2021 [facility] Lancets - Lancets - 03/16/2021 12:00:00 AM EDT act melissa Lancets - eCW1 ([facility]) Alcohol Wipes 70 % UNK 03/16/2021 12:00:00 AM EDT active Alcohol Wipes 70 % eCW1 ([facility]) Test Strips - UNK 03/16/2021 12:00:00 AM EDT acti ve Test Strips - eCW1 ([facility]) Glucose Monitor - UNK 03/16/2021 12:00:00 AM EDT active Glucose Monitor - eCW1 ([facility]) Test Strips - UNK 03/16/2021 12:00:00 AM EDT acti ve Test Strips - eCW1 ([facility]) Alcohol Wipes 70 % UNK 03/16/2021 12:00:00 AM EDT active Alcohol Wipes 70 % eCW1 ([facility]) Glucose Monitor - UNK 03/16/2021 12:00:00 AM EDT active Glucose Monitor - eCW1 ([facility]) Test Strips - UNK 03/16/2021 12:00:00 AM EDT acti ve Test Strips - eCW1 ([facility]) Alcohol Wipes 70 % UNK 03/16/2021 12:00:00 AM EDT active Alcohol Wipes 70 % eCW1 ([facility]) BLOOD SUGAR DIAGNOSTIC 03/16/2021 12:00:00 AM EDT strip 100 USE FOUR TIMES A DAY USE FOUR TIMES A DAY SOLD: 03/17/2021 [facility] Glucose Monitor - UNK 03/16/2021 12:00:00 AM EDT active Glucose Monitor - eCW1 ([facility]) Lancets - Lancets - 03/16/2021 12:00:00 AM EDT act melissa Lancets - eCW1 ([facility]) 33 gauge 03/16/2021 12:00:00 AM EDT misc 100 USE FOUR TIMES A DAY USE FOUR TIMES A DAY SOLD: 03/17/2021 [facility] Alcohol Wipes 70 % UNK 03/16/2021 12:00:00 AM EDT active Alcohol Wipes 70 % eCW1 ([facility]) Glucose Monitor - UNK 03/16/2021 12:00:00 AM EDT active Glucose Monitor - eCW1 ([facility]) Lancets - Lancets - 03/16/2021 12:00:00 AM EDT act melissa Lancets - eCW1 ([facility]) BLOOD-GLUCOSE METER 03/16/2021 12:00:00 AM EDT misc 1 USE FOUR TIMES A DAY USE FOUR TIMES A DAY SOLD: 03/17/2021 [facility] Test Strips - UNK 03/16/2021 12:00:00 AM EDT acti ve Test Strips - eCW1 ([facility]) ALCOHOL ANTISEPTIC PADS 03/16/2021 12:00:00 AM EDT pads, med icated 100 USE FOUR TIMES A DAY USE FOUR TIMES A DAY SOLD: 03/17/2021 [facility] Lancets - Lancets - 03/16/2021 12:00:00 AM EDT act melissa Lancets - eCW1 ([facility]) 100 mcg 02/22/2021 12:00:00 AM EDT tablet 90 TAKE ONE TABLET BY MOUTH EVERY MORNING ON EMPTY STOMACH TAKE ONE TABLET BY MOUTH EVERY MORNING O N EMPTY STOMACH SOLD: 03/02/2021 [facility] Labetalol hydrochloride 200 MG Oral Tablet LABETALOL HCL 01/28/2021 12:00:00 AM EDT tablet 30 TAKE ONE TABLET BY MOUTH JESSE RY DAY TAKE ONE TABLET BY MOUTH EVERY DAY SOLD: 03/02/2021 [facility] Labetalol hydrochloride 200 MG Oral Tablet LABETALOL HCL 01/28/2021 12:00:00 AM EDT tablet 30 TAKE ONE TABLET BY MOUTH JESSE RY DAY TAKE ONE TABLET BY MOUTH EVERY DAY SOLD: 01/30/2021 [facility] 50 mg 07/05/2020 12:00:00 AM EST tablet 90 TAKE ONE TABLET BY MOUTH EVERY DAY TAKE ONE TABLET BY MOUTH EVERY DAY SOLD: 11/23/2020 [facility] 1,000 mg 07/05/2020 12:00:00 AM EST tablet 90 TAKE ONE TABLET BY MOUTH EVERY DAY WITH FOOD TAKE ONE TABLET BY MOUTH EVERY DAY WITH FOOD SOLD: 12/15/2020 [facility] Metformin hydrochloride 1000 MG Oral Tablet 1,000 mg METFORM IN HCL 07/05/2020 12:00:00 AM EST tablet 90 TAKE ONE TABLET BY MOUTH EVERY DAY WITH FOOD TAKE ONE TABLET BY MOUTH EVERY DAY WITH FOOD SOLD: 07/10/2020 [facility] 50 mg 07/05/2020 12:00:00 AM EST tablet 90 TAKE ONE TABLET BY MOUTH EVERY DAY TAKE ONE TABLET BY MOUTH EVERY DAY SOLD: 07/10/2020 [facility] 37.5 mg 05/28/2020 12:00:00 AM EST capsule 30 TAKE ONE CAPSULE BY MOUTH EVERY DAY MAXIMUM DAILY DOSE = 1 CAPSULE TAKE ONE CAPSULE BY MOUTH EVERY DAY MAXIMUM DAILY DOSE = 1 CAPSULE SOLD: 06/01/2020 [facility] Phentermine Hydrochloride 37.5 MG Oral Capsule Phenter mine HCl 37.5 MG Phentermine HCl 37.5 MG 05/27/2020 12:00:00 AM EST 1.0 {capsule} active Phentermine HCl 37.5 MG eCW1 ([facility]) Phentermine Hydrochloride 37.5 MG Oral Capsule Phenter mine HCl 37.5 MG Phentermine HCl 37.5 MG 05/27/2020 12:00:00 AM EST 1.0 {capsule} suspended Phentermine HCl 37.5 MG eCW1 ([facility]) Phentermine Hydrochloride 37.5 MG Oral Capsule Phenter mine HCl 37.5 MG Phentermine HCl 37.5 MG 05/27/2020 12:00:00 AM EST 1.0 {capsule} active Phentermine HCl 37.5 MG eCW1 ([facility]) Phentermine Hydrochloride 37.5 MG Oral Capsule Phenter mine HCl 37.5 MG Phentermine HCl 37.5 MG 05/27/2020 12:00:00 AM EST 1.0 {capsule} suspended Phentermine HCl 37.5 MG eCW1 ([facility]) Phentermine Hydrochloride 37.5 MG Oral Capsule Phenter mine HCl 37.5 MG Phentermine HCl 37.5 MG 05/27/2020 12:00:00 AM EST 1.0 {capsule} suspended Phentermine HCl 37.5 MG eCW1 ([facility]) Phentermine Hydrochloride 37.5 MG Oral Capsule Phenter mine HCl 37.5 MG Phentermine HCl 37.5 MG 05/27/2020 12:00:00 AM EST 1.0 {capsule} suspended Phentermine HCl 37.5 MG eCW1 ([facility]) Phentermine Hydrochloride 37.5 MG Oral Capsule Phenter mine HCl 37.5 MG Phentermine HCl 37.5 MG 05/27/2020 12:00:00 AM EST 1.0 {capsule} suspended Phentermine HCl 37.5 MG eCW1 ([facility]) Phentermine Hydrochloride 37.5 MG Oral Capsule Phenter mine HCl 37.5 MG Phentermine HCl 37.5 MG 05/27/2020 12:00:00 AM EST 1.0 {capsule} suspended Phentermine HCl 37.5 MG eCW1 ([facility]) Phentermine Hydrochloride 37.5 MG Oral Capsule Phenter mine HCl 37.5 MG Phentermine HCl 37.5 MG 05/27/2020 12:00:00 AM EST 1.0 {capsule} suspended Phentermine HCl 37.5 MG eCW1 ([facility]) Phentermine Hydrochloride 37.5 MG Oral Capsule Phenter mine HCl 37.5 MG Phentermine HCl 37.5 MG 05/27/2020 12:00:00 AM EST 1.0 {capsule} suspended Phentermine HCl 37.5 MG eCW1 ([facility]) Phentermine Hydrochloride 37.5 MG Oral Capsule Phenter mine HCl 37.5 MG Phentermine HCl 37.5 MG 05/27/2020 12:00:00 AM EST 1.0 {capsule} suspended Phentermine HCl 37.5 MG eCW1 ([facility]) Phentermine Hydrochloride 37.5 MG Oral Capsule Phenter mine HCl 37.5 MG Phentermine HCl 37.5 MG 05/27/2020 12:00:00 AM EST 1.0 {capsule} suspended Phentermine HCl 37.5 MG eCW1 ([facility]) Phentermine Hydrochloride 37.5 MG Oral Capsule Phenter mine HCl 37.5 MG Phentermine HCl 37.5 MG 05/27/2020 12:00:00 AM EST 1.0 {capsule} suspended Phentermine HCl 37.5 MG eCW1 ([facility]) Phentermine Hydrochloride 37.5 MG Oral Capsule Phenter mine HCl 37.5 MG Phentermine HCl 37.5 MG 05/27/2020 12:00:00 AM EST 1.0 {capsule} suspended Phentermine HCl 37.5 MG eCW1 ([facility]) Phentermine Hydrochloride 37.5 MG Oral Capsule Phenter mine HCl 37.5 MG Phentermine HCl 37.5 MG 05/27/2020 12:00:00 AM EST 1.0 {capsule} suspended Phentermine HCl 37.5 MG eCW1 ([facility]) 200 mg 05/11/2020 12:00:00 AM EST tablet 30 TAKE ONE TABLET BY MOUTH EVERY DAY TAKE ONE TABLET BY MOUTH EVERY DAY SOLD: 08/17/2020 [facility] 100 mcg 05/11/2020 12:00:00 AM EST tablet 30 TAKE 1 TABLET BY MOUTH ON EMPTY STOMACH IN THE MORNING TAKE 1 TABLET BY MOUTH ON EMPTY STOMACH IN THE MORNING SOLD: 01/09/2021 [facility] 100 mcg 05/11/2020 12:00:00 AM EST tablet 30 TAKE 1 TABLET BY MOUTH ON EMPTY STOMACH IN THE MORNING TAKE 1 TABLET BY MOUTH ON EMPTY STOMACH IN THE MORNING SOLD: 07/02/2020 [facility] 100 mcg 05/11/2020 12:00:00 AM EST tablet 30 TAKE 1 TABLET BY MOUTH ON EMPTY STOMACH IN THE MORNING TAKE 1 TABLET BY MOUTH ON EMPTY STOMACH IN THE MORNING SOLD: 11/23/2020 [facility] Labetalol hydrochloride 200 MG Oral Tablet LABETALOL HCL 05/11/2020 12:00:00 AM EST tablet 30 TAKE ONE TABLET BY MOUTH JESSE DAY TAKE ONE TABLET BY MOUTH EVERY DAY SOLD: 12/15/2020 [facility] 200 mg 05/11/2020 12:00:00 AM EST tablet 30 TAKE ONE TABLET BY MOUTH EVERY DAY TAKE ONE TABLET BY MOUTH EVERY DAY SOLD: 05/13/2020 [facility] 200 mg 05/11/2020 12:00:00 AM EST tablet 30 TAKE ONE TABLET BY MOUTH EVERY DAY TAKE ONE TABLET BY MOUTH EVERY DAY SOLD: 07/02/2020 [facility] 100 mcg 05/11/2020 12:00:00 AM EST tablet 30 TAKE 1 TABLET BY MOUTH ON EMPTY STOMACH IN THE MORNING TAKE 1 TABLET BY MOUTH ON EMPTY STOMACH IN THE MORNING SOLD: 08/17/2020 [facility] 100 mcg 05/11/2020 12:00:00 AM EST tablet 30 TAKE 1 TABLET BY MOUTH ON EMPTY STOMACH IN THE MORNING TAKE 1 TABLET BY MOUTH ON EMPTY STOMACH IN THE MORNING SOLD: 10/15/2020 [facility] 200 mg 05/11/2020 12:00:00 AM EST tablet 30 TAKE ONE TABLET BY MOUTH EVERY DAY TAKE ONE TABLET BY MOUTH EVERY DAY SOLD: 11/06/2020 [facility] 200 mg 05/11/2020 12:00:00 AM EST tablet 30 TAKE ONE TABLET BY MOUTH EVERY DAY TAKE ONE TABLET BY MOUTH EVERY DAY SOLD: 09/27/2020 [facility] 100 mcg 05/11/2020 12:00:00 AM EST tablet 30 TAKE 1 TABLET BY MOUTH ON EMPTY STOMACH IN THE MORNING TAKE 1 TABLET BY MOUTH ON EMPTY STOMACH IN THE MORNING SOLD: 05/13/2020 [facility] 25 mg 04/16/2020 12:00:00 AM EST tablet 30 TAKE ONE TABLET BY MOUTH EVERY MORNING WITH FOOD TAKE ONE TABLET BY MOUTH EVERY MORNING WITH FOOD SOLD: 04/22/2020 [facility] 25 mg 04/16/2020 12:00:00 AM EST tablet 30 TAKE ONE TABLET BY MOUTH EVERY MORNING WITH FOOD TAKE ONE TABLET BY MOUTH EVERY MORNING WITH FOOD SOLD: 06/16/2020 [facility] 25 mg 04/16/2020 12:00:00 AM EST tablet 30 TAKE ONE TABLET BY MOUTH EVERY MORNING WITH FOOD TAKE ONE TABLET BY MOUTH EVERY MORNING WITH FOOD SOLD: 08/17/2020 [facility] 100 mcg 01/06/2020 12:00:00 AM EDT tablet 30 TAKE ONE TABLET BY MOUTH EVERY MORNING ON AN EMPTY STOMACH TAKE ONE TABLET BY MOUTH EVERY MORNING O N AN EMPTY STOMACH SOLD: 02/16/2020 [facility] 200 mg 01/06/2020 12:00:00 AM EDT tablet 30 TAKE ONE TABLET BY MOUTH EVERY DAY TAKE ONE TABLET BY MOUTH EVERY DAY SOLD: 02/16/2020 [facility] 100 mcg 01/06/2020 12:00:00 AM EDT tablet 30 TAKE ONE TABLET BY MOUTH EVERY MORNING ON AN EMPTY STOMACH TAKE ONE TABLET BY MOUTH EVERY MORNING O N AN EMPTY STOMACH SOLD: 03/22/2020 [facility] 200 mg 01/06/2020 12:00:00 AM EDT tablet 30 TAKE ONE TABLET BY MOUTH EVERY DAY TAKE ONE TABLET BY MOUTH EVERY DAY SOLD: 03/22/2020 [facility] 25 mg 12/22/2019 12:00:00 AM EDT tablet 30 TAKE 1 TABLET BY MOUTH IN THE MORNING WITH FOOD TAKE 1 TABLET BY MOUTH IN THE MORNING WITH FOOD SOLD: 02/29/2020 [facility] 50 mg 11/05/2019 12:00:00 AM EDT tablet 90 TAKE ONE TABLET BY MOUTH EVERY DAY TAKE ONE TABLET BY MOUTH EVERY DAY SOLD: 02/29/2020 [facility] Metformin hydrochloride 1000 MG Oral Tablet 1,000 mg METFORM IN HCL 11/05/2019 12:00:00 AM EDT tablet 90 TAKE ONE TABLET BY MOUTH EVERY DAY WITH MEAL TAKE ONE TABLET BY MOUTH EVERY DAY WITH MEAL SOLD: 02/29/2020 [facility] Insurance Providers Payer name Policy type / Coverage type Policy ID Covered democrat ID Covered democrat's relationship to conner Policy Conner Plan Information [facility] Health Maintenance Organization ([facility]) 29 [id number] Self [id number] [facility] Health Maintenance Organization (O) 29 [id number] Self [id number] [facility] Health Maintenance Organization ([facility]) [id number] Self [facility] Health Maintenance [facility] ([facility]) 29 [id number] Self [id number] [facility] Health Maintenance Organization ([facility]) 29 [id number] Self [id number] [facility] Health Maintenance Organization ([facility]) 29 [id number] Self [id number] [employer] of [facility] Other [id number] Self BCBS of [facility] Other 302/802 [id number] Self 302/802 [place] of [place] Other 302/802 [id number] Self [id number] BLUE CROSS [id number] SP [id number] [place]BS [place] PPO 302/307 [id number] SP [id number] [employer] and Blue [employer] - [place] Blue Cross/B lue Shield [id number] Self [id number] RPR- Needs Payer Match [id number] Self [id number] BCBS/[employer] Commercial [id number] Self [id number] BC[employer] [id number] Self [id number] BC[employer] [id number] Self [id number] [employer] B [id number] S VYS [id number] BCBS/[employer] Commercial [id number] Self [id number] [employer] [id number] SP [id number] BCBS [place] PPO 302/307 [id number] SP [id number] [facility] [id number] FA2 13 [id number] [place] [id number] SP [id number] BCBS [place] PPO 302/307 VYS [id number] SP VYS [id number] [place]BS [place] PPO 302/307 [id number] SP [id number] SELF PAY ONLY [id number] SP [id number] ANSI-Not a Secondary Insurance [id number] ANSI-Not a Secondary Insurance [id number] ANSI-Not a Secondary Insurance [id number] [employer] BCYO P [id number] S VYS [id number] ANSI-Not a Secondary Insurance [id number] [employer] BCBS B [id number] O VYS [id number] SELF PAY O [id number] S [id number] BCBS/[employer] Commercial [id number] Self [id number] BCBS/[employer] Commercial [id number] Self [id number] Problems, Conditions, and Diagnoses Code Display Name Description Problem Type Effective Dates Data Source(s) K21.9 [id number] Gastroesophageal ref lux disease, unspecified whether esophagitis present Problem 04/03/2021 12:00:00 AM EDT eCW1 ([facility]) O16.3 [id number] Hypertension affecting in third trimester Problem 03/31/2021 12:00:00 AM EDT eCW1 ([facility]) O10.919 Benign essential hypertension in obstetr ic context Chronic hypertension affecting Problem 03/16/2021 12:00:00 AM EDT eCW1 ([facility]) O99.213 Maternal obesity complicatin g , childbirth and the puerperium, antepartum Obesity complicating , third trimester Problem 03/16/2021 12:00:00 AM EDT eCW1 ([facility]) Z68.42 [id number] BMI 45.0-49.9, adult Problem 02/16/2021 12:0 0:00 AM EDT eCW1 ([facility]) O99.212 [id number] Obesity affecting in second tri mester Problem 02/16/2021 12:00:00 AM EDT eCW1 ([facility]) E03.9 [id number] Hypothyroidism, unspecified type Problem 02/14/2021 12:00:00 AM EDT eCW1 ([facility]) O10.012 [id number] Essential hypertension affecting in second trimester Problem 02/14/2021 12:00:00 AM EDT eCW1 ([facility]) Z34.80 care Supervision of other normal P roblem 10/13/2020 12:00:00 AM EDT eCW1 ([facility]) Surgeries/Procedures No Information Results ID Date Data Source TOTAL PROTEIN,RANDOM URINE 04/03/2021 12:00:00 AM EDT eCW1 ( [facility]) Name Value Range Interpretation Code Description Data Yaz rce(s) Supporting Document(s) 110.2 0.0-12.0 TOTAL PROTEIN,RANDOM URIN E eCW1 ([facility]) ID Date Data Source CREATININE,RANDOM URINE 04/03/2021 12:00:00 AM EDT eCW1 ([facility]) Name Value Range Interpretation Code Description Data Yaz rce(s) Supporting Document(s) 291.0 CREATININE,RANDOM URINE eCW1 ( [facility]) ID Date Data Source Comprehensive Metabolic Profile (CMP) 04/03/2021 12:00:00 AM EDT eCW1 ([facility]) Name Value Range Interpretation Code Description Data Yaz rce(s) Supporting Document(s) 101 70-100 GLUCOSE, FASTING eCW1 ([facility]) 137 136-145 SODIUM LEVEL eCW1 ([facility]) > 60.0 >58 GLOMERULAR FILTRATION RATE eCW 1 ([facility]) 0.72 0.55-1.30 CREATININE FOR GFR eCW1 ([facility]) 13 7-18 BLOOD UREA NITROGEN eCW1 ([facility]) 4.5 3.5-5.1 POTASSIUM SERUM eCW1 ([facility]) 103 98-107 CHLORIDE LEVEL eCW1 ([facility]) 10.4 8.5-10.1 CALCIUM LEVEL eCW1 ([facility]) 27 21-32 CARBON DIOXIDE LEVEL eCW1 ([facility]) 18 12-78 ALT/SGPT eCW1 ([facility]) 0.1 0.2-1.0 BILIRUBIN,TOTAL eCW1 ([facility]) 144 45-117 ALKALINE PHOSPHATASE eCW1 ([facility]) 19 7-37 AST/SGOT eCW1 ([facility]) 2.4 3.2-5.2 ALBUMIN eCW1 ([facility]) 6.9 6.4-8.2 TOTAL PROTEIN eCW1 ([facility]) 0.5 1.2-2.2 ALBUMIN/GLOBULIN RATIO eCW1 ([facility]) ID Date Data Source CBC - Complete Blood Count 04/03/2021 12:00:00 AM EDT eCW1 ( Formerly [facility]) Name Value Range Interpretation Code Description Data Yaz rce(s) Supporting Document(s) 12.2 4.0-10.0 WHITE BLOOD COUNT eCW1 ([facility]) 3.67 4.00-5.40 RED BLOOD COUNT eCW1 ([facility]) 89.4 80.0-96.0 MEAN CORPUSCULAR VOLUME e CW1 (Formerly [facility]) 10.4 12.0-15.5 HEMOGLOBIN eCW1 ([facility]) 32.8 36.0-47.0 HEMATOCRIT eCW1 (Critical access hospital) 28.3 27.0-33.0 MEAN CORPUSCULAR HEMOGLOB IN eCW1 ([facility]ly [facility]) 405 150-450 PLATELET COUNT, AUTOMATED eCW1 (Formerly [facility]) 31.7 32.0-36.5 MEAN CORPUSCULAR HGB CONC eCW1 ([facility]ly [facility]) 15.5 11.5-14.5 RED CELL DISTRIBUTION WID TH eCW1 ([facility]ly [facility]) ID Date Data Source TSH 02/20/2021 12:00:00 AM EDT eCW1 (Formerly [facility]) Name Value Range Interpretation Code Description Data Yaz rce(s) Supporting Document(s) 0.610 0.358-3.740 THYROID STIMULATING HORM ONE eCW1 (Formerly [facility]) ID Date Data Source FREE T4 02/20/2021 12:00:00 AM EDT eCW1 (Formerly [facility]) Name Value Range Interpretation Code Description Data Yaz rce(s) Supporting Document(s) 0.97 0.76-1.46 FREE T4 eCW1 ([facility]) ID Date Data Source Pre Eclampsia Profile 02/20/2021 12:00:00 AM EDT eCW1 ([facility]) Name Value Range Interpretation Code Description Data Yaz rce(s) Supporting Document(s) > 60.0 >58 GLOMERULAR FILTRATION RATE eCW 1 ([facility]ly [facility]) 0.70 0.55-1.30 CREATININE FOR GFR eCW1 ([facility]) 12 7-37 AST/SGOT eCW1 ([facility]) 14 12-78 ALT/SGPT eCW1 ([facility]) 110 84-246 LDH LACTATE DEHYDROGENASE eCW1 ([facility]) 0.2 0.2-1.0 BILIRUBIN,TOTAL eCW1 ([facility]) 5.3 2.6-6.0 URIC ACID eCW1 ([facility]) ID Date Data Source [id number] 08/07/2020 12:00:00 AM EST [facility] Name Value Range Interpretation Code Description Data Yaz rce(s) Supporting Document(s) Carestart Rapid COVID Antigen Test Positive [facility] This [facility] was reported by Don gayle. ID Date Data Source [id number] 06/10/2020 12:00:00 AM EST [facility] Name Value Range Interpretation Code Description Data Yaz rce(s) Supporting Document(s) SARS coronavirus 2 RNA [Presence] in Res piratory specimen by ISADORA with probe detection NEGATIVE [facility] This lab was ordered by Don Ruiz and reported by [employer]. ID Date Data Source [id number] 06/10/2020 12:00:00 AM EST [facility] Name Value Range Interpretation Code Description Data Yaz rce(s) Supporting Document(s) Carestart Rapid COVID Antigen Test [facility] This lab was reported by Don gayle. ID Date Data Source [id number] 05/17/2020 12:00:00 AM EST [facility] Name Value Range Interpretation Code Description Data Yaz rce(s) Supporting Document(s) 2019-nCoV RNA XXX ISADORA+probe-Imp [facility] This lab was ordered by [facility] and reported by [employer] Procedure Social History Code Duration Value Status Description Data Source(s ) Smoking 04/03/2021 12:00:00 AM EDT Never Smoker completed Never S moker eCW1 ([facility]) Smoking 04/03/2021 12:00:00 AM EDT Never Smoker completed Never S moker eCW1 ([facility]) Smoking 04/03/2021 12:00:00 AM EDT Never Smoker completed Never S moker eCW1 ([facility]) Smoking 03/15/2021 12:00:00 AM EDT Never Smoker completed Never S moker eCW1 ([facility]) Smoking 02/16/2021 12:00:00 AM EDT Never Smoker completed Never S moker eCW1 ([facility]) Smoking 02/16/2021 12:00:00 AM EDT Never Smoker completed Never S moker eCW1 ([facility]) Smoking 02/16/2021 12:00:00 AM EDT Never Smoker completed Never S moker eCW1 ([facility]) Smoking 01/12/2021 12:00:00 AM EDT Never Smoker completed Never S moker eCW1 ([facility]) Smoking 01/12/2021 12:00:00 AM EDT Never Smoker completed Never S moker eCW1 ([facility]) Smoking 12/16/2020 12:00:00 AM EDT Never Smoker completed Never S moker eCW1 ([facility]) Smoking 11/14/2020 12:00:00 AM EDT Never Smoker completed Never S moker eCW1 ([facility]) Smoking 11/14/2020 12:00:00 AM EDT Never Smoker completed Never S moker eCW1 ([facility]) Smoking 10/17/2020 12:00:00 AM EDT Never Smoker completed Never S moker eCW1 ([facility]) Smoking 05/24/2020 12:00:00 AM EST Never Smoker completed Never S moker eCW1 ([facility]) Smoking 05/24/2020 12:00:00 AM EST Never Smoker completed Never S moker eCW1 ([facility]) Smoking 04/11/2020 12:00:00 AM EST Never Smoker completed Never S moker eCW1 ([facility]) Smoking 04/11/2020 12:00:00 AM EST Never Smoker completed Never S moker eCW1 ([facility]) Vital Signs ID Date Data Source UNK Name Value Range Interpretation Code Description Data Source(s) Body weight 298 [lb_av] 298 [lb_av] eCW1 ([facility]) Body weight 135.17 kg 135.17 kg W1 ([facility]) Body height [in_i] eCW1 ([facility]ly [facility]) Body mass index (BMI) [Ratio] 46.673 kg/m2 46.6 73 kg/m2 eCW1 ([facility]) Systolic blood pressure 156 mm[Hg] 156 mm[Hg] e CW1 ([facility]) Diastolic blood pressure 90 mm[Hg] 90 mm[Hg] eCW1 ([facility]) Body mass index (BMI) [Ratio] 45.577 kg/m2 45.5 77 kg/m2 W1 ([facility]) Systolic blood pressure 120 mm[Hg] 120 mm[Hg] e CW1 ([facility]) Diastolic blood pressure 70 mm[Hg] 70 mm[Hg] eCW1 ([facility]) Body weight 291 [lb_av] 291 [lb_av] eCW1 ([facility]) Body weight 132 kg 132 kg eCW1 ([facility]) Body height [in_i] eCW1 ([facility]) Body weight 293.6 [lb_av] 293.6 [lb_av] eCW1 ([facility]) Body height [in_i] eCW1 ([facility]) Body mass index (BMI) [Ratio] 45.984 kg/m2 45.9 84 kg/m2 eCW1 ([facility]) Systolic blood pressure 132 mm[Hg] 132 mm[Hg] e CW1 ([facility]) Diastolic blood pressure 70 mm[Hg] 70 mm[Hg] eCW1 ([facility]) Body weight 295.3 [lb_av] 295.3 [lb_av] eCW1 ([facility]) Body height [in_i] eCW1 ([facility]) Body mass index (BMI) [Ratio] 63.902 kg/m2 63.9 02 kg/m2 eCW1 ([facility]) Systolic blood pressure 132 mm[Hg] 132 mm[Hg] e CW1 ([facility]) Diastolic blood pressure 78 mm[Hg] 78 mm[Hg] eCW1 ([facility]) Body weight 297 [lb_av] 297 [lb_av] eCW1 ([facility]) Body height [in_i] eCW1 ([facility]) Body mass index (BMI) [Ratio] 64.27 kg/m2 64.27 kg/m2 eCW1 ([facility]) Systolic blood pressure 136 mm[Hg] 136 mm[Hg] e CW1 ([facility]) Diastolic blood pressure 80 mm[Hg] 80 mm[Hg] eCW1 ([facility]) Systolic blood pressure 136 mm[Hg] 136 mm[Hg] e CW1 ([facility]) Body weight 294.8 [lb_av] 294.8 [lb_av] eCW1 ([facility]) Body height [in_i] eCW1 ([facility]) Body mass index (BMI) [Ratio] 63.794 kg/m2 63.7 94 kg/m2 eCW1 ([facility]) Diastolic blood pressure 80 mm[Hg] 80 mm[Hg] eCW1 ([facility]) Body weight 295.6 [lb_av] 295.6 [lb_av] eCW1 ([facility]) Body weight 134.08 kg 134.08 kg eCW1 ([facility]) Body height [in_i] eCW1 ([facility]) Body mass index (BMI) [Ratio] 46.29 kg/m2 46.29 kg/m2 eCW1 ([facility]) Systolic blood pressure 128 mm[Hg] 128 mm[Hg] e CW1 ([facility]) Diastolic blood pressure 78 mm[Hg] 78 mm[Hg] eCW1 ([facility]) Patient Treatment Plan of Care Planned Activity Planned Date Details Description Data Source (s) Glucose Monitor - 03/16/2021 12:00:00 AM EDT eCW1 ([facility]) Alcohol Wipes 70 % 03/16/2021 12:00:00 AM EDT eCW1 ([facility]) Lancets - 03/16/2021 12:00:00 AM EDT e CW1 ([facility]) Test Strips - 03/16/2021 12:00:00 AM EDT eCW1 ([facility]) Phentermine Hydrochloride 37.5 MG Oral Capsule 05/27/2020 12:00:00 AM EST eCW1 ([facility]) Phentermine Hydrochloride 37.5 MG Oral Capsule 05/27/2020 12:00:00 AM EST eCW1 ([facility])
[2021-04-05 20:51] LABS: HEMATOCRIT 32.8 % (36.0-47.0); HEMOGLOBIN 10.5 g/dl (12.0-15.5); MEAN CORPUSCULAR HEMOGLOBIN 28.2 pg (27.0-33.0); MEAN CORPUSCULAR VOLUME 87.9 fl (80.0-96.0); PLATELET COUNT, AUTOMATED 390 10^3/uL (150-450); RED BLOOD COUNT 3.73 10^6/uL (4.00-5.40); WHITE BLOOD COUNT 15.4 10^3/uL (4.0-10.0)
[2021-04-05] MEDS: OMEPRAZOLE 20 MG CAP PO SCH (21:07)
[2021-04-05 21:42] LABS: TOTAL PROTEIN,RANDOM URINE 83.1 MG/DL (0.0-12.0)
[2021-04-05 21:45] LABS: ALT/SGPT 19 U/L (12-78); BILIRUBIN,TOTAL 0.2 MG/DL (0.2-1.0); CREATININE FOR GFR 1.04 MG/DL (0.55-1.30); GLOMERULAR FILTRATION RATE > 60.0 (>58); LDH LACTATE DEHYDROGENASE 153 U/L (84-246)
[2021-04-05] MEDS: hydrOXYzine 50 MG TAB PO PRN (22:14)
[2021-04-06] VITALS (61 sets, daily range): BP systolic 114–187; BP diastolic 56–93
[2021-04-06] MEDS ORDERED: LABETALOL 100MG/20ML VIAL IV STA ×2 (00:51→09:37)
--- NOTE | 2021-04-06 06:09 | HPE ---
HISTORY AND PHYSICAL DATE OF ADMISSION: 04/05/2021 HISTORY OF PRESENT ILLNESS: Alma is a 40-year-old 3 para 1-0-1-1 at 33 and 3/7th weeks gestation, EDC of 05/21/2021 based on last menstrual period and confirmed by first trimester ultrasound. She presents to labor and delivery today following a routine appointment where she was noted to have blood pressure in the severe range. She does deny headache, visual disturbances, epigastric pain and right upper quadrant discomfort. She denies vaginal bleeding or leakage of fluid and painful contractions. The fetus has been active. She does report some mild upper respiratory symptoms such as a stuffy head and sore throat. She was evaluated for that a few days ago and noted to have a negative throat culture and sensitivity. She was also advised by her primary care that the sore throat is probably related to reflux that she has been experiencing an increase in acid. The plan is to start antacid medication to help decrease her stomach acid. [facility] care [facility] in the first trimester. Her course is complicated by a history of a prior section with a desire for a repeat and a bilateral tubal, hypothyroidism, chronic hypertension for which she has been taking 200 mg p.o. daily of labetalol which was increased on March 31 to 200 mg p.o. b.i.d. She did not increase her medication as she was directed as she said did not like how she felt when she took the second dose. History of polycystic ovarian syndrome, she is taking Metformin 1000 mg daily. History of preeclampsia. She has been taking aspirin 81 mg daily for prevention as well as current status of advanced maternal age. She underwent noninvasive testing which returned low risk for aneuploidy. OBSTETRIC HISTORY: In February 2017, seven weeks, spontaneous miscarriage; March 13, 2018, 37 weeks, 5 pound, 2 ounce male, primary section following induction for preeclampsia secondary to arrest of dilation. OBSTETRIC LABS: Blood type is O positive, antibody screen is negative. Syphilis is nonreactive. Gonorrhea and chlamydia are negative. Maternal hepatitis B surface antigen negative, hepatitis C antibody nonreactive, HIV nonreactive, rubella equivocal. Urine culture with no growth. Group Strep culture is unknown at this time. Gestational diabetic screening on February 20, 2021 was 130. She did not undergo a three hour glucose tolerance test as directed. Most recent on 04/03/2021 she did undergo preeclamptic labs. She was noted to have an AST of 19, ALT of 18, alkaline phosphatase of 144, uric acid was not done. Spot urine 0.379. Her baseline spot urine was 0.342, so that has remained stable. PAST MEDICAL HISTORY: Obesity, chronic hypertension, polycystic ovarian syndrome, hypothyroidism, and depression, childhood varicella. PAST SURGICAL HISTORY: Left breast abscess incision and drainage and a section. FAMILY HISTORY: Hypertension, colon cancer, COPD, asthma, autism, Asperger's, heart disease and diabetes. SOCIAL HISTORY: The patient is , her is at bedside and very supportive. She is a nonsmoker. She denies alcohol and drug use. No history of sexually transmitted infections. She denies a history of abuse, physical, sexual and emotional. ALLERGIES: No known drug allergies. CURRENT MEDICATIONS: 1. Metformin 1000 mg daily. 2. Labetalol 200 mg p.o. b.i.d. 3. vitamin. 4. Levothyroxine 100 mcg daily. OBJECTIVE: Temperature is 97.2, pulse is 84, respirations are 84, blood pressure is 168/84, repeat 156/73. The patient is tearful and anxious. She has had severe range pressures up to 179/84 as well as some normotensive pressures like 139/66. heart rate upon arrival was 130 with moderate variability and positive accelerations, negative decelerations. No pattern of contractions. Vaginal exam is deferred. She was sent for a biophysical profile which the results are pending. ASSESSMENT: Intrauterine at 33 and 3/7th weeks, heart rate Category 1, chronic hypertension, rule out superimposed preeclampsia versus the need to manage chronic hypertension. PLAN: Per consult with Dr. Ayanna Bautista. Labetalol 200 mg p.o. her second dose, betamethasone for lung maturity. At this time I am ordering a saline lock if the need to use IV antihypertensives arises, CBC, preeclamptic profile and repeat spot urine have been ordered. I did review the plan of care with the patient and her , all of their questions have been answered and they are agreeable to the plan. At this point, the patient will remain on labor and delivery overnight to monitor her blood pressures. The plan will be to get her beta complete and then potentially deliver her 24 hours following that or if her blood pressures remain normotensive then perhaps discharge to home. The patient and her are aware that this plan of care can change at any given moment.
[2021-04-06] MEDS: LEVOTHYROXINE 100MCG TABLET (0.1MG) PO SCH (07:45)
[2021-04-06] MEDS: LABETALOL 200 MG TAB PO SCH ×2 (08:26→18:58)
[2021-04-06] MEDS ORDERED: PRENATAL VITAMINS CHEWABLE TABLET PO SCH (09:00)
[2021-04-06] MEDS ORDERED: DOCUSATE SODIUM 100MG CAPSULE PO SCH (09:00)
[2021-04-06] MEDS ORDERED: OXYTOCIN DRIP 30 UNITS in IV 1 EA IV SCH (09:05)
[2021-04-06] MEDS ORDERED: MEASLES,MUMPS,RUBELLA VACCINE INJ (MMR-II) (90707) SC SCH (09:05)
[2021-04-06] MEDS ORDERED: SIMETHICONE 80MG CHEW TAB PO PRN (09:05)
[2021-04-06] MEDS ORDERED: KETOROLAC 30 MG/ML 1ML VIAL IV SCH (09:05)
[2021-04-06] MEDS ORDERED: ONDANSETRON 4 MG ORAL DISINTEGRATING TAB PO PRN (09:05)
[2021-04-06] MEDS ORDERED: PERCOCET 5MG/325MG TAB PO PRN (09:05)
[2021-04-06] MEDS ORDERED: RHOGAM 300 MCG (1500 IU) INJ (J2790) IM SCH (09:05)
[2021-04-06] MEDS ORDERED: MOM 30ML SUSPENSION UDC PO PRN (09:05)
[2021-04-06] MEDS ORDERED: MAGNESIUM *L&D* 4GM/100ML BAG (40MG/ML) IV ONE (09:40)
[2021-04-06] MEDS ORDERED: MAGNESIUM *L&D* 4GM/100ML BAG (40MG/ML) As Ordered ONE (09:43)
[2021-04-06] MEDS: metFORMIN (GLUCOPHAGE) 1000 MG TABLET PO SCH (09:59)
[2021-04-06] MEDS ORDERED: MAGNESIUM SULFATE 4% INJ 20GM/500ML (40MG/ML) As Ordered ONE (10:28)
[2021-04-06] MEDS: MAG Sulf (OBGYN) 20GM/500ML 20,000 MG in IV 1 EA IV SCH ×2 (10:39→20:31)
[2021-04-06] MEDS: LR 1,000 ML IV SCH (10:39)
[2021-04-06 10:43] LABS: HEMATOCRIT 29.2 % (36.0-47.0); HEMOGLOBIN 9.5 g/dl (12.0-15.5); MEAN CORPUSCULAR HEMOGLOBIN 28.7 pg (27.0-33.0); MEAN CORPUSCULAR HGB CONC 32.5 g/dl (32.0-36.5); MEAN CORPUSCULAR VOLUME 88.2 fl (80.0-96.0); PLATELET COUNT, AUTOMATED 355 10^3/uL (150-450); RED BLOOD COUNT 3.31 10^6/uL (4.00-5.40); WHITE BLOOD COUNT 13.1 10^3/uL (4.0-10.0)
[2021-04-06 11:11] LABS: ALBUMIN 2.1 GM/DL (3.2-5.2); ALT/SGPT 16 U/L (12-78); BILIRUBIN,TOTAL 0.2 MG/DL (0.2-1.0); BLOOD UREA NITROGEN 15 MG/DL (7-18); CALCIUM LEVEL 9.1 MG/DL (8.5-10.1); CARBON DIOXIDE LEVEL 21 MEQ/L (21-32); CHLORIDE LEVEL 105 MEQ/L (98-107); CREATININE FOR GFR 0.75 MG/DL (0.55-1.30); GLOMERULAR FILTRATION RATE > 60.0 (>58); GLUCOSE, FASTING 138 MG/DL (70-100); POTASSIUM SERUM 4.2 MEQ/L (3.5-5.1); SODIUM LEVEL 134 MEQ/L (136-145); TOTAL PROTEIN 6.4 GM/DL (6.4-8.2)
--- NOTE | 2021-04-06 12:00 | IPNPDOC ---
Text Note Date of Service The patient was seen on 04/06/21. NOTE S: Patient is doing well this morning, denies contractions leaking of fluid or vaginal bleeding. Denies headaches vision changes or right upper quadrant pain. She is resting comfortably. O: Persistent severe range blood pressures this morning requiring IV antihypertensives. BP 121/58 GR 100 SPO2 95% Gen: no acute distress Pulm: CTAB Card: RRR, mild tachycardia Ext: DTR +2 bilaterally FHT: 140 mod +accel no decel [place]: acontractile A/P 40yo at 33w4d with CHTN with super imposed PEC w/ SF 1. - course of betamethasone, first dose given on 04/05 - CEFM, toco while on MgSO4 - anticipate delivery at 34 weeks 2. CHTN w/ SI PEC w/ SF - continue home meds of labetalol 200mg BID, titrate up as needed - MgSO4 infusion for 24 hrs, restart at the time of delivery - plan for delivery at 34 weeks, or sooner if maternal or indications - labs within normal limits - monitor for s/sx of mag toxicity VS,Fishbone, I+O VS, Fishbone, I+O Laboratory Tests 04/05/21 20:26 04/06/21 10:31 Vital Signs Date Time Temp Pulse Resp B/P (MAP) Pulse Ox O2 Delivery O2 Flow Rate FiO2 04/06/21 10:20 83 114/56 (75) 04/06/21 10:10 18 04/06/21 07:28 98.2 96 04/05/21 20:45 Room Air REBA PULIDO MD Apr 06, 2021 12:00
[2021-04-06] MEDS: BETAMETHASONE SOLUSPAN 6MG/ML 5ML VIAL (J0702 PER 3MG) IM SCH (17:37)
[2021-04-06] MEDS: SERTRALINE HCL 50 MG TAB PO SCH (19:54)
[2021-04-06] MEDS: hydrOXYzine 50 MG TAB PO PRN (21:02)
[2021-04-06] MEDS: OMEPRAZOLE 20 MG CAP PO SCH (21:04)
[2021-04-07] VITALS (74 sets, daily range): BP systolic 127–176; BP diastolic 58–89
[2021-04-07] MEDS: LR 1,000 ML IV SCH ×2 (02:09→10:10)
[2021-04-07] MEDS ORDERED: LABETALOL 200 MG TAB PO SCH ×2 (03:00→09:00)
[2021-04-07] MEDS ORDERED: LABETALOL 100MG TAB PO STA (03:55)
[2021-04-07] MEDS ORDERED: LABETALOL 100MG/20ML VIAL IV STA (06:49)
[2021-04-07] MEDS: LEVOTHYROXINE 100MCG TABLET (0.1MG) PO SCH (06:57)
[2021-04-07] MEDS: MAG Sulf (OBGYN) 20GM/500ML 20,000 MG in IV 1 EA IV SCH ×3 (06:58→17:50)
[2021-04-07 07:27] LABS: HEMATOCRIT 29.1 % (36.0-47.0); HEMOGLOBIN 9.3 g/dl (12.0-15.5); MEAN CORPUSCULAR HEMOGLOBIN 28.7 pg (27.0-33.0); MEAN CORPUSCULAR VOLUME 89.8 fl (80.0-96.0); PLATELET COUNT, AUTOMATED 342 10^3/uL (150-450); RED BLOOD COUNT 3.24 10^6/uL (4.00-5.40); WHITE BLOOD COUNT 15.8 10^3/uL (4.0-10.0)
[2021-04-07 07:57] LABS: ALBUMIN 2.1 GM/DL (3.2-5.2); ALT/SGPT 16 U/L (12-78); BILIRUBIN,TOTAL 0.1 MG/DL (0.2-1.0); BLOOD UREA NITROGEN 14 MG/DL (7-18); CALCIUM LEVEL 8.1 MG/DL (8.5-10.1); CARBON DIOXIDE LEVEL 24 MEQ/L (21-32); CHLORIDE LEVEL 103 MEQ/L (98-107); CREATININE FOR GFR 0.77 MG/DL (0.55-1.30); GLOMERULAR FILTRATION RATE > 60.0 (>58); GLUCOSE, FASTING 131 MG/DL (70-100); POTASSIUM SERUM 4.4 MEQ/L (3.5-5.1); SODIUM LEVEL 136 MEQ/L (136-145); TOTAL PROTEIN 6.5 GM/DL (6.4-8.2)
[2021-04-07] MEDS: metFORMIN (GLUCOPHAGE) 1000 MG TABLET PO SCH (08:10)
[2021-04-07] MEDS: SERTRALINE HCL 50 MG TAB PO SCH (09:07)
[2021-04-07] MEDS: LABETALOL 100MG TAB PO SCH ×2 (11:04→19:04)
[2021-04-07] MEDS ORDERED: IBUPROFEN 800 MG TAB PO SCH (11:05)
[2021-04-07] MEDS ORDERED: PENICILLIN G POTASSIUM IV 5 MU in D5W MINI-BAG PLUS 100 ML IV STA (14:28)
[2021-04-07] MEDS ORDERED: PENICILLIN G POTASSIUM IV 2.5 MU in IV 1 EA IV SCH (18:30)
[2021-04-07] MEDS: OMEPRAZOLE 20 MG CAP PO SCH (21:10)
[2021-04-08] VITALS (50 sets, daily range): BP systolic 130–180; BP diastolic 63–88
[2021-04-08] MEDS ORDERED: FIORICET TAB PO ONE (01:05)
[2021-04-08] MEDS: LR 1,000 ML IV SCH ×2 (02:09→18:58)
[2021-04-08] MEDS: LABETALOL 100MG TAB PO SCH ×3 (03:15→18:58)
[2021-04-08] MEDS: MAG Sulf (OBGYN) 20GM/500ML 20,000 MG in IV 1 EA IV SCH ×3 (05:14→18:12)
[2021-04-08] MEDS: LEVOTHYROXINE 100MCG TABLET (0.1MG) PO SCH (05:57)
[2021-04-08 07:51] LABS: HEMATOCRIT 27.5 % (36.0-47.0); HEMOGLOBIN 8.7 g/dl (12.0-15.5); MEAN CORPUSCULAR HEMOGLOBIN 28.5 pg (27.0-33.0); MEAN CORPUSCULAR HGB CONC 31.6 g/dl (32.0-36.5); MEAN CORPUSCULAR VOLUME 90.2 fl (80.0-96.0); PLATELET COUNT, AUTOMATED 314 10^3/uL (150-450); RED BLOOD COUNT 3.05 10^6/uL (4.00-5.40); WHITE BLOOD COUNT 18.1 10^3/uL (4.0-10.0)
[2021-04-08] MEDS: metFORMIN (GLUCOPHAGE) 1000 MG TABLET PO SCH (07:52)
[2021-04-08 08:11] LABS: ALT/SGPT 14 U/L (12-78); CREATININE FOR GFR 0.64 MG/DL (0.55-1.30); GLOMERULAR FILTRATION RATE > 60.0 (>58); LDH LACTATE DEHYDROGENASE 158 U/L (84-246); URIC ACID 6.3 MG/DL (2.6-6.0)
[2021-04-08 08:37] LABS: BILIRUBIN,TOTAL < 0.1 MG/DL (0.2-1.0)
[2021-04-08] MEDS ORDERED: LABETALOL 100MG/20ML VIAL IV STA ×2 (09:06→10:02)
[2021-04-08] MEDS: SERTRALINE HCL 50 MG TAB PO SCH (09:12)
[2021-04-08] MEDS ORDERED: BICITRA 30ML SOLN UDC PO ONE (11:00)
[2021-04-08] MEDS ORDERED: ceFAZolin SOD 1 GM in D5W MINI-BAG PLUS 50 ML IV ONE (11:00)
[2021-04-08] MEDS ORDERED: ceFAZolin SOD 2 GM in IV 1 EA IV ONE (11:00)
[2021-04-08] MEDS: hydrOXYzine 50 MG TAB PO PRN (11:32)
--- NOTE | 2021-04-08 12:30 | IPNPDOC ---
Obstetrical Progress Note Date of Service Apr 08, 2021 Subjective Patient with headache that has been treated with Fioricet. She is also has had extremely labile blood pressures. She has been treated 3 times with IV labetalol. Her H&H suggest hemolysis Objective Vital Signs Date Time Temp Pulse Resp B/P (MAP) Pulse Ox O2 Delivery O2 Flow Rate FiO2 04/08/21 11:46 75 148/80 (102) Room Air 04/08/21 10:56 97.4 04/08/21 10:46 16 04/06/21 19:47 97 Assessment Variability: Decreased Tocometer Contractions: No Assessment and Plan Age: 40 : 3 Livin EGA at Admission: 33 Status: Reassuring Anticipate: Section (Patient with chronic hypertension superimposed preeclampsia with severe features showing worsening disease. Plan to proceed with repeat section. Patient also has expressed satisfied parity throughout and desires permanent sterilization. Plan to proceed with repeat section with tubal ligation. Anesthesia in OR team has been notified.) JERONIMO OBRIEN MD. Apr 08, 2021 12:30
[2021-04-08] MEDS ORDERED: ONDANSETRON 4MG/2ML VIAL As Ordered ONE (12:53)
[2021-04-08] MEDS ORDERED: MORPHINE PRES-FREE INJ 10 MG/10 ML VIAL (J2274) As Ordered ONE (12:53)
[2021-04-08] MEDS ORDERED: NALBUPHINE HCL 10 MG/ML AMP (J2300) IV PRN ×2 (12:53→14:45)
[2021-04-08] MEDS ORDERED: ONDANSETRON 4MG/2ML VIAL IV PRN ×3 (12:53→14:45)
[2021-04-08] MEDS ORDERED: NALOXONE INJ 0.4MG/1ML VIAL (J2310 PER 1MG) IV PRN ×2 (12:53)
[2021-04-08] MEDS ORDERED: METOCLOPRAMIDE INJ 10MG/2ML VIAL (J2765 PER 1) IV PRN (12:53)
[2021-04-08] MEDS ORDERED: diphenhydrAMINE 50MG/ML VIAL (J1200) IV PRN (12:53)
[2021-04-08] MEDS ORDERED: OXYTOCIN INJ 10 UNITS/ML VIAL (J2590) As Ordered ONE (12:53)
[2021-04-08] MEDS ORDERED: KETOROLAC 60MG 2ML VIAL As Ordered ONE (13:27)
[2021-04-08] MEDS ORDERED: hydrALAZINE 20MG/ML 1ML VIAL (J0360 PER 20MG) As Ordered ONE (14:03)
[2021-04-08] MEDS ORDERED: OXYTOCIN 30 UNITS IN 0.9% NaCl 500ML IV BAG (J2590) As Ordered ONE (14:32)
[2021-04-08] MEDS ORDERED: MOM 30ML SUSPENSION UDC PO PRN (14:35)
[2021-04-08] MEDS ORDERED: PERCOCET 5MG/325MG TAB PO PRN ×2 (14:35)
[2021-04-08] MEDS ORDERED: LR 1,000 ML IV SCH ×2 (14:35→14:45)
[2021-04-08] MEDS ORDERED: OXYTOCIN DRIP 30 UNITS in IV 1 EA IV SCH (14:35)
[2021-04-08] MEDS ORDERED: RHOGAM 300 MCG (1500 IU) INJ (J2790) IM SCH (14:35)
[2021-04-08] MEDS ORDERED: MEASLES,MUMPS,RUBELLA VACCINE INJ (MMR-II) (90707) SC SCH (14:35)
[2021-04-08] MEDS ORDERED: SIMETHICONE 80MG CHEW TAB PO PRN (14:35)
[2021-04-08] MEDS ORDERED: oxyCODONE 5MG TAB PO PRN (14:45)
[2021-04-08] MEDS ORDERED: fentaNYL 100 MCG/2 ML INJECTION (J3010) IV PRN (14:45)
--- NOTE | 2021-04-08 15:30 | ROOPDOC ---
[facility] Report Of Operation Report of Operation DATE OF PROCEDURE: 04/08/21 SURGEON: Adamaris North M.D. TECHNOLOGY LEAD: Jose Friedman MD( essential for tissue retractions, exposure and delivery of ) PROCEDURE: Repeat section with Bilateral [place] tubal ligation PREOPERATIVE DIAGNOSIS: 1. History of prior section 2. Chronic hypertension with severe supposed preeclampsia 3. Breech presentation 4. Satisfied parity with undesired fertility POSTOPERATIVE DIAGNOSIS: 1. History of prior section 2. Chronic hypertension with severe supposed preeclampsia 3. Breech presentation 4. Satisfied parity with undesired fertility ANESTHESIA: Spinal ESTIMATED BLOOD LOSS: 700 mL URINE OUTPUT: 425 mL INTRAVENOUS FLUIDS: 1200 mL of lactated Ringer's solution PREOPERATIVE ANTIBIOTICS:. 3 g of Ancef OPERATIVE FINDINGS: Liveborn female infant, Apgars 5 and 7. Weight 2206 g or 4 pounds 14 ounces SPECIMENS: Bilateral segments of fallopian tubes DESCRIPTION OF PROCEDURE: After informed consent was obtained and written consent was reviewed. The patient was brought to the operating room where spinal anesthesia was placed. She was then placed in the supine position with a left lateral tilt. Harrison catheter was placed and to gravity. Patient was then prepped and draped in the normal sterile fashion. A timeout operating room was performed identifying the patient, procedure be performed as well as drug allergies. Anesthesia was tested and deemed to be adequate. Pfannenstiel skin incision was made and this was carried down to the underlying rectus fascia. The fascia was then scored and this incision was extended bilaterally. The fascia was then dissected off the underlying rectus muscle superiorly and inferiorly. The rectus muscles were then in the midline. The peritoneum is then entered. Vesicouterine peritoneum was then tented and excised and a bladder flap was created. Mobius retractor was then placed. Next, a curvilinear incision was then made in the lower uterine segment. Amniotomy was performed, productive, clear fluid. breech was delivered along with lower extremity, corpus, shoulder and head. The cord was clamped x2. The was brought over to the warmer with a good cry. Placenta was drained and delivered grossly intact. The uterus was cleared of all clots and debris and the uterine incision was then closed using 0 Vicryl in a running locking fashion followed by a second layer of 0 Vicryl in a running nonlocking fashion for imbrication. Attention was then turned to a bilateral [place] tubal ligation. A window was created in the right mesosalpinx. This area was doubly ligated with 3-0 chromic and was excised with good hemostasis noted. In a similar fashion, the left fallopian tube was placed on traction. A window was created in the mesosalpinx. This area was doubly ligated with 3-0 chromic and was excised, and hemostasis was noted. The abdomen suctioned. Surgical sites reinspected and noted be hemostatic. The retractor was then removed. The anterior peritoneum was then reapproximated with 3-0 Vicryl. The rectus muscles were reapproximated 3-0 Vicryl. The fascia was then closed using 0 Vicryl in a running nonlocking fashion. The subcutaneous tissues was then irrigated and suctioned. Subcutaneous tissue was reapproximated using 3-0 Vicryl. Several subdermal stitch is placed using 3-0 Vicryl and the skin was closed with 4-0 Monocryl and subcuticular fashion. This incision was then cleaned and dried and was dressed. The patient was then taken to recovery in stable condition. All counts were correct. . My certified physician's assistant Dr. Friemdan played in an essential role during the operation. She assisted with tissue identification retraction, delivery of the , as well as wound closure. ADAMARIS NORTH MD. Apr 08, 2021 15:29
[2021-04-08] MEDS: KETOROLAC 30 MG/ML 1ML VIAL IV SCH (20:13)
[2021-04-08] MEDS: OMEPRAZOLE 20 MG CAP PO SCH (21:14)
[2021-04-08] MEDS: DOCUSATE SODIUM 100MG CAPSULE PO SCH (21:14)
[2021-04-09] VITALS (21 sets, daily range): BP systolic 77–163; BP diastolic 40–77
[2021-04-09] MEDS: LABETALOL 100MG TAB PO SCH ×3 (02:27→18:44)
[2021-04-09] MEDS: KETOROLAC 30 MG/ML 1ML VIAL IV SCH ×2 (02:28→08:09)
[2021-04-09] MEDS ORDERED: MAGNESIUM SULFATE 4% INJ 20GM/500ML (40MG/ML) As Ordered ONE (03:30)
[2021-04-09] MEDS: LEVOTHYROXINE 100MCG TABLET (0.1MG) PO SCH (05:52)
[2021-04-09] MEDS: LR 1,000 ML IV SCH (05:53)
[2021-04-09] MEDS ORDERED: ceFAZolin SOD 3 GM in IV 1 EA IV ONE (06:00)
[2021-04-09 07:02] LABS: HEMATOCRIT 25.4 % (36.0-47.0); MEAN CORPUSCULAR HEMOGLOBIN 28.9 pg (27.0-33.0); MEAN CORPUSCULAR HGB CONC 31.5 g/dl (32.0-36.5); MEAN CORPUSCULAR VOLUME 91.7 fl (80.0-96.0); PLATELET COUNT, AUTOMATED 285 10^3/uL (150-450); RED BLOOD COUNT 2.77 10^6/uL (4.00-5.40); WHITE BLOOD COUNT 14.9 10^3/uL (4.0-10.0)
[2021-04-09] MEDS: metFORMIN (GLUCOPHAGE) 1000 MG TABLET PO SCH (08:09)
[2021-04-09] MEDS: DOCUSATE SODIUM 100MG CAPSULE PO SCH ×2 (08:59→21:01)
[2021-04-09] MEDS: SERTRALINE HCL 50 MG TAB PO SCH (08:59)
[2021-04-09] MEDS: PRENATAL VITAMINS CHEWABLE TABLET PO SCH (08:59)
[2021-04-09] MEDS: FERROUS SULFATE 325MG TAB PO SCH (10:05)
--- NOTE | 2021-04-09 10:43 | IPNPDOC ---
Progress Note Date of Service: Apr 09, 2021 Day#: 1 Progress Note SUBJECT: Doing well without complaints. Pain is well-controlled. She denies headache visual changes or abdominal pain. Her blood pressures have been within normal limits. OBJECTIVE: VITAL SIGNS: Within normal limits, afebrile. Alert and oriented times three. Abdomen: Fundus firm at U-2. Soft, NTTP. Incision: dressed Ext: neg calf tenderness. ASSESSMENT: /postoperative day #1 status post delivery with tubal ligation. Chronic hypertension with superimposed preeclampsia. Recovering in stable condition. PLAN: 1. Plan to discontinue magnesium sulfate at 3:00 which will be 24 hours. 2. Continue to titrate antihypertensive therapy. VS, I&O, 24H, Fishbone Vital Signs/I&O Vital Signs Date Time Temp Pulse Resp B/P (MAP) Pulse Ox O2 Delivery O2 Flow Rate FiO2 04/09/21 10:03 66 125/63 (83) 04/09/21 08:03 100 Room Air 04/09/21 07:03 97.0 16 1.0 I&O- Last 24 Hours up to 6 AM 04/09/21 06:00 Intake Total 1891.8 ml Output Total 2720 ml Balance -828.2 ml Laboratory Data 24H LABS Laboratory Tests 2 04/09/21 06:44: Nucleated Red Blood Cells % (auto) 0.1H CBC/BMP Laboratory Tests 04/09/21 06:44 Microbiology Microbiology 04/05/21 Group B Streptococcus Screen ([facility]) - Final, Complete Strep Agalactiae Group B JERONIMO OBRIEN MD. Apr 09, 2021 10:43
[2021-04-09] MEDS: IBUPROFEN 800 MG TAB PO SCH ×2 (15:45→23:24)
[2021-04-09] MEDS: hydrOXYzine 50 MG TAB PO PRN (18:50)
[2021-04-09] MEDS: OMEPRAZOLE 20 MG CAP PO SCH (21:02)
[2021-04-10] VITALS (30 sets, daily range): BP systolic 140–204; BP diastolic 52–88
[2021-04-10] MEDS: LABETALOL 100MG TAB PO SCH ×3 (02:19→18:30)
[2021-04-10] MEDS: LEVOTHYROXINE 100MCG TABLET (0.1MG) PO SCH (06:25)
[2021-04-10] MEDS: metFORMIN (GLUCOPHAGE) 1000 MG TABLET PO SCH (08:30)
[2021-04-10] MEDS: FERROUS SULFATE 325MG TAB PO SCH (08:31)
[2021-04-10] MEDS: DOCUSATE SODIUM 100MG CAPSULE PO SCH ×2 (08:31→20:48)
[2021-04-10] MEDS: IBUPROFEN 800 MG TAB PO SCH ×2 (08:31→16:33)
[2021-04-10] MEDS: SERTRALINE HCL 50 MG TAB PO SCH (08:31)
[2021-04-10] MEDS: PRENATAL VITAMINS CHEWABLE TABLET PO SCH (08:32)
[2021-04-10] MEDS: NIFEdipine 30 MG XL TAB PO SCH (08:33)
[2021-04-10] MEDS ORDERED: LABETALOL 100MG/20ML VIAL IV STA ×2 (09:39→13:16)
--- NOTE | 2021-04-10 12:37 | IPNPDOC ---
Progress Note Date of Service: Apr 10, 2021 Day#: 2 Progress Note SUBJECT: Alma is a 40-year-old 3 now Para 1112 status post section for preeclampsia with severe features at 33 6/7 weeks' on 06/08/2021. She had a female weighting 4 pounds 14 ounces (2206 grams) that is in the NICU due to prematurity. She has ambulated to the bathroom without any symptoms of dizziness. She is voiding spontaneously without issue and tolerating regular diet. Reports lochia is like a normal period. Pain is well managed. She denies preeclamptic symptoms. OBJECTIVE: VITAL SIGNS: See below. Alert and oriented times three. Respirations are nonlabored on room air. Auscultation reveals clear loves bilaterally. Abdomen: Fundus firm. Dressing is clean, dry, and intact. Minimal lochia. Extremities: mild bilateral pedal edema. No clonus. ASSESSMENT: Postoperative day #2, preeclampsia with severe features. PLAN: 1. Blood pressure management discussed with Dr. Olsen. Nifedipine 30 mg XR started daily and 1 dose of 20 mg given IV of Labetalol to help manage a severe range BP. Plan collaborated and will continue with current medications unless diastolic is above 100 or systolic is greater than 190 given her diastolic pressures are in the 50's and because she has no physical symptoms. If she gets symptoms of preeclampsia or symptoms of dizziness then we can discuss another plan of care. 2. Pt is asymptomatic, reviewed with patient to notify nursing staff of headaches or visual changes 3. Continue with supportive nursing care. VS, I&O, 24H, Fishbone Vital Signs/I&O Vital Signs Date Time Temp Pulse Resp B/P (MAP) Pulse Ox O2 Delivery O2 Flow Rate FiO2 04/10/21 12:00 72 170/70 (103) 04/10/21 08:33 98.0 20 98 04/10/21 06:00 Room Air 04/09/21 07:03 1.0 Vital Signs Label Value Date Time Blood Pressure Assessment 180/56 (97) 04/10/21 1520 Source Manual Cuff/Auscultation Blood Pressure Assessment 170/52 (91) 04/10/21 1630 Source Manual Cuff/Auscultation I&O- Last 24 Hours up to 6 AM 04/10/21 06:00 Intake Total 2620 ml Output Total 1625 ml Balance 995 ml Laboratory Data Microbiology Microbiology 04/05/21 Group B Streptococcus Screen ([facility]) - Final, Complete Strep Agalactiae Group B MELISA OSCAR CNM Apr 10, 2021 12:37
[2021-04-10] MEDS ORDERED: ACETAMINOPHEN TAB 650MG DOSE (2X325MG) PO PRN (12:50)
[2021-04-10] MEDS: ACETAMINOPHEN 500 MG TAB PO PRN ×2 (13:04→20:52)
[2021-04-10] MEDS: OMEPRAZOLE 20 MG CAP PO SCH (20:49)
[2021-04-10] MEDS: hydrOXYzine 50 MG TAB PO PRN (20:50)
[2021-04-11] MEDS: IBUPROFEN 800 MG TAB PO SCH ×2 (00:50→08:19)
[2021-04-11 02:11] VITALS: BP 156/76
[2021-04-11] MEDS: LABETALOL 100MG TAB PO SCH ×2 (02:28→11:43)
[2021-04-11] MEDS: LEVOTHYROXINE 100MCG TABLET (0.1MG) PO SCH (05:57)
[2021-04-11 06:00] VITALS: BP 158/75
[2021-04-11] MEDS: DOCUSATE SODIUM 100MG CAPSULE PO SCH (08:18)
[2021-04-11] MEDS: FERROUS SULFATE 325MG TAB PO SCH (08:18)
[2021-04-11] MEDS: metFORMIN (GLUCOPHAGE) 1000 MG TABLET PO SCH (08:18)
[2021-04-11] MEDS: SERTRALINE HCL 50 MG TAB PO SCH (08:19)
[2021-04-11] MEDS: PRENATAL VITAMINS CHEWABLE TABLET PO SCH (08:20)
[2021-04-11] MEDS: NIFEdipine 30 MG XL TAB PO SCH (08:21)
[2021-04-11] MEDS ORDERED: BOOSTRIX/ADACEL VACCINE (DIPHTH/PERTUSS/ACELL/TETANUS) 0.5ML SYR IM ONE (09:00)
[2021-04-11] MEDS ORDERED: IBUP80TA PO (09:30)
[2021-04-11] MEDS ORDERED: NIFE1TAB52 PO (09:32)
[2021-04-11] MEDS ORDERED: LABE100T4 PO (09:32)
--- NOTE | 2021-04-11 09:40 | DS.PDOC ---
Discharge Summary General Date of Admission Apr 05, 2021 at 20:19 Date of Discharge April 11, 2021 Discharge Summary PROCEDURES PERFORMED DURING STAY: section and tubal ligation. ADMITTING DIAGNOSES: 1. 33-3/7 weeks gestation chronic hyper tension with superimposed severe pree clampsia. DISCHARGE DIAGNOSES: 1. Same. COMPLICATIONS/CHIEF COMPLAINT: B/P Check. HISTORY OF PRESENT ILLNESS: 40-year-old 3 para 1-0-1-1 female at 33-3/7 weeks gestation presents from the office after being noted to have a severe range blood pressures. History is significant for chronic hypertension. She had preeclampsia with her first . HOSPITAL COURSE: 40-year-old 3 para 1-0-1-1 female at 33-3/7 weeks gestation presents from the office after being noted to have a severe range blood pressures. History is significant for chronic hypertension. She had preeclampsia with her first . Patient was admitted on May 06, 2021. She was treated with antihypertensive. She was also given magnesium sulfate for seizure prophylaxis. She was administered steroids to improve lung maturity and hospitalized on modified bedrest. Due to the severity of her hypertension the decision made to proceed to delivery at 34 weeks gestation. On April 08, 2021 she underwent repeat section with bilateral tubal sterilization for a 4 pound 14 ounce female . There were no complications. Her postoperative course was significant for elevated blood pressure. She was started on both nifedipine and labetalol to help manage blood pressures. She had adequate return of bladder bowel function. She was deemed stable for discharge on postop day #3. DISCHARGE MEDICATIONS: Please see below. ALLERGIES: Please see below. PHYSICAL EXAMINATION ON DISCHARGE: VITAL SIGNS: Please see below. GENERAL: NAD HEENT: NCAT CARDIOVASCULAR EXAMINATION: RRR RESPIRATORY EXAMINATION: CTA ABDOMINAL EXAMINATION: Nontender, dressing clean dry intact EXTREMITIES: Nontender LABORATORY DATA: Please see below. PROGNOSIS: Good ACTIVITY: As tolerated DIET: Regular DISCHARGE PLAN: Home DISCHARGE INSTRUCTIONS: 1. Discharge home. 2. Continue antihypertensive medications 3. Follow-up in the office 2 weeks DISCHARGE CONDITION: Stable. TIME SPENT ON DISCHARGE: 10 minutes. Vital Signs/I&Os Vital Signs Date Time Temp Pulse Resp B/P (MAP) Pulse Ox O2 Delivery O2 Flow Rate FiO2 04/11/21 08:21 158/75 04/11/21 06:00 98.1 81 20 97 Room Air 04/09/21 07:03 1.0 Microbiology Microbiology 04/05/21 Group B Streptococcus Screen ([facility]) - Final, Complete Strep Agalactiae Group B Discharge Medications Scheduled Ibuprofen (Ibuprofen) 800 Mg Tablet, 800 MG PO Q8H Labetalol HCl (Labetalol HCl) 100 Mg Tablet, 300 MG PO Q8H Levothyroxine Sodium (Levothyroxine Sodium) 100 Mcg Tablet, 100 MCG PO DAILY, (Reported) Metformin HCl (Metformin HCl) 1,000 Mg Tab, 1,000 MG PO DAILY, (Reported) Nifedipine (Nifedipine ER) 30 Mg Tab.er.24, 30 MG PO DAILY Pnv,Calcium 72/Iron/Folic Acid ( Vitamin Plus Low Iron) 1 Tab Tab, 1 TAB PO DAILY, (Reported) Sertraline Hcl (Zoloft) 50 Mg Tab, 1 TAB PO DAILY Miscellaneous Medications Calcium Carbonate (Tums) 200 Mg Tab.chew, 500 MG PO, (Reported) Allergies Coded Allergies: No Known Allergies (Unverified , 10/18/17) DOM KLINE MD Apr 11, 2021 09:40
[2021-04-11 10:00] VITALS: BP 161/75
[2021-04-11 11:43] VITALS: BP 161/75
[2021-04-11] MEDS ORDERED: INFLUENZA QUADRIVALENT PF VACCINE 0.5ML SYRINGE IM ONE (12:00)
[2021-04-11 14:50] VITALS: BP 154/68
== END 2021-04-11 14:55 | disposition home or self-care (01) | DRG 540 ==
LOC: M LDO 16:36 → M LDI 20:19 → M OBS 04-09 16:45
PROVIDERS: ADMIT Advanced Practice Midwife; ATTEND Advanced Practice Midwife
PROC: 0UB70ZZ Excision of Bilateral Fallopian Tubes, Open Approach (ICD-10-PCS; 2021-04-08)
PROC: 10D00Z1 Extraction of Products of Conception, Low, Open Approach (ICD-10-PCS; principal; 2021-04-08 12:00)
DX: O11.4 Pre-existing hypertension with pre-eclampsia, complicating childbirth (principal); O10.02 Pre-existing essential hypertension complicating childbirth; O34.211 Maternal care for low transverse scar from previous cesarean delivery; Z3A.33 33 weeks gestation of pregnancy; Z37.0 Single live birth; O99.284 Endocrine, nutritional and metabolic diseases complicating childbirth; E03.9 Hypothyroidism, unspecified; O09.523 Supervision of elderly multigravida, third trimester; Z30.2 Encounter for sterilization; Z79.82 Long term (current) use of aspirin; Z87.59 Personal history of other complications of pregnancy, childbirth and the puerperium; O64.1XX0 Obstructed labor due to breech presentation, not applicable or unspecified

== ENCOUNTER → 2021-11-13 | Outpatient (REF) | payer BC, MEDICAID ==
[~2021-11-13] MED LIST changes: +ASPI81CH33 PO; +IBUP80TA PO; +LABE100T4 PO; +LABE200T3 PO; +LEVO100T5 PO; +NIFE1TAB52 PO; +TUMS500C PO
[2021-11-13 13:42] LABS: BASO % 0.2 % (0.0-1.0); EOS # 0.3 10^3/uL (0.0-0.5); EOS % 3.1 % (0.0-3.0); HEMATOCRIT 36.3 % (36.0-47.0); HEMOGLOBIN 11.6 g/dl (12.0-15.5); LYMPH # 1.9 10^3/uL (1.5-5.0); LYMPH % 19.3 % (24.0-44.0); MEAN CORPUSCULAR HEMOGLOBIN 28.6 pg (27.0-33.0); MEAN CORPUSCULAR VOLUME 89.6 fl (80.0-96.0); MONO # 0.7 10^3/uL (0.0-0.8); NEUTROPHILS % 69.9 % (36.0-66.0); PLATELET COUNT, AUTOMATED 355 10^3/uL (150-450); RED BLOOD COUNT 4.05 10^6/uL (4.00-5.40)
[2021-11-13 14:19] LABS: ALBUMIN 3.4 GM/DL (3.2-5.2); ALT/SGPT 21 U/L (12-78); BILIRUBIN,TOTAL 0.2 MG/DL (0.2-1.0); BLOOD UREA NITROGEN 16 MG/DL (7-18); CALCIUM LEVEL 9.9 MG/DL (8.5-10.1); CARBON DIOXIDE LEVEL 31 MEQ/L (21-32); CHLORIDE LEVEL 103 MEQ/L (98-107); CHOLESTEROL LEVEL 205 MG/DL (<200); CHOLESTEROL RISK RATIO 5.857 (<5); GLOMERULAR FILTRATION RATE > 60.0 (>58); GLUCOSE, FASTING 92 MG/DL (70-100); HDL CHOLESTEROL 35 MG/DL (>40); LDL CHOLESTEROL 102 MG/DL (<100); NON-HDL-C 170 MG/DL; POTASSIUM SERUM 4.4 MEQ/L (3.5-5.1); SODIUM LEVEL 139 MEQ/L (136-145); TRIGLYCERIDES LEVEL 340 MG/DL (<150)
== END ==
LOC: M SFHCADAM 08:00
PROVIDERS: ATTEND Physician Assistant Medical
DX: I10 Essential (primary) hypertension (principal)

== ENCOUNTER → 2021-11-14 | Outpatient (REF) | payer BC, MEDICAID ==
[2021-11-14 16:11] LABS: HEMATOCRIT 35.5 % (36.0-47.0); HEMOGLOBIN 11.2 g/dl (12.0-15.5); MEAN CORPUSCULAR HEMOGLOBIN 28.7 pg (27.0-33.0); MEAN CORPUSCULAR HGB CONC 31.5 g/dl (32.0-36.5); PLATELET COUNT, AUTOMATED 363 10^3/uL (150-450); WHITE BLOOD COUNT 11.8 10^3/uL (4.0-10.0)
[2021-11-14 16:18] LABS: BLOOD UREA NITROGEN 19 MG/DL (7-18); CALCIUM LEVEL 9.9 MG/DL (8.5-10.1); CARBON DIOXIDE LEVEL 31 MEQ/L (21-32); CHLORIDE LEVEL 101 MEQ/L (98-107); CREATININE FOR GFR 0.94 MG/DL (0.55-1.30); FERRITIN 47 NG/ML (8-252); GLOMERULAR FILTRATION RATE > 60.0 (>58); GLUCOSE, FASTING 83 MG/DL (70-100); IRON (FE) 68 UG/DL (50-170); PERCENT SATURATION 21.7 % (13.2-45.0); POTASSIUM SERUM 4.2 MEQ/L (3.5-5.1); SODIUM LEVEL 137 MEQ/L (136-145); TOTAL IRON BINDING CAPACITY 313 UG/DL (250-450)
[2021-11-14 16:32] LABS: VITAMIN B12 LEVEL 617 PG/ML
[2021-11-14 16:33] LABS: FOLATE > 24.0 NG/ML
== END ==
LOC: M SFHCADAM 13:35
PROVIDERS: ATTEND Physician Assistant Medical
DX: I10 Essential (primary) hypertension (principal); D64.9 Anemia, unspecified

== ENCOUNTER → 2022-01-07 | Outpatient (CLI) | payer BC, MEDICAID ==
[~2022-01-07] MED LIST changes: +CHLO125TA PO; +IBUP200T46 PO; +LISI40TA4 PO
== END ==
LOC: M LABSMTC 09:29
PROVIDERS: ATTEND Anesthesiology
DX: Z01.812 Encounter for preprocedural laboratory examination (principal); Z20.822 Contact with and (suspected) exposure to COVID-19

== ENCOUNTER 2022-01-10 09:39 | Day surgery (SDC) | payer BC, MEDICAID ==
[~2022-01-10] VITALS: Ht 170.2 cm; Wt 125.6 kg
[~2022-01-10 09:39] MED LIST changes: -LABE100T4 PO; +LABE100T6 PO; -LABE200T3 PO; +LABE200T5 PO; -LABE300T2 PO; +LABE300T55 PO; +NS 1,000 ML IV ONE
[2022-01-10] MEDS ORDERED: PHENYLephrine 500MCG 5ML (100MCG/ML) SYRINGE As Ordered ONE (11:17)
[2022-01-10] MEDS ORDERED: LIDOCAINE 2% 100MG/5ML SDV (FOR ANES.) As Ordered ONE (11:29)
[2022-01-10] MEDS ORDERED: propofoL 200 MG/20 ML VIAL As Ordered ONE (11:29)
[2022-01-10 11:40] VITALS: BP 182/92
== END 2022-01-10 11:58 | disposition home or self-care (01) ==
LOC: M OPP 09:39
PROVIDERS: ATTEND Surgery
DX: Z12.11 Encounter for screening for malignant neoplasm of colon (principal); Z80.0 Family history of malignant neoplasm of digestive organs; I10 Essential (primary) hypertension; E78.5 Hyperlipidemia, unspecified; E03.9 Hypothyroidism, unspecified; K21.9 Gastro-esophageal reflux disease without esophagitis; F41.9 Anxiety disorder, unspecified; F32.A Depression, unspecified; Z79.899 Other long term (current) drug therapy
CPT/HCPCS: 45378; J2370

== ENCOUNTER → 2022-07-23 | Outpatient (REF) | payer BC, MEDICAID, OTHER ==
[~2022-07-23] MED LIST changes: -NS 1,000 ML IV ONE
[2022-07-23 13:01] LABS: BASO % 0.3 % (0.0-1.0); EOS # 0.2 10^3/uL (0.0-0.5); EOS % 1.4 % (0.0-3.0); HEMATOCRIT 37.2 % (36.0-47.0); HEMOGLOBIN 11.8 g/dl (12.0-15.5); LYMPH # 2.2 10^3/uL (1.5-5.0); LYMPH % 19.7 % (24.0-44.0); MEAN CORPUSCULAR HEMOGLOBIN 28.6 pg (27.0-33.0); MEAN CORPUSCULAR HGB CONC 31.7 g/dl (32.0-36.5); MEAN CORPUSCULAR VOLUME 90.1 fl (80.0-96.0); MONO # 0.7 10^3/uL (0.0-0.8); MONO % 6.1 % (2.0-8.0); NEUTROPHILS # 8.1 10^3/uL (1.5-8.5); NEUTROPHILS % 71.8 % (36.0-66.0); PLATELET COUNT, AUTOMATED 404 10^3/uL (150-450); RED BLOOD COUNT 4.13 10^6/uL (4.00-5.40); WHITE BLOOD COUNT 11.3 10^3/uL (4.0-10.0)
[2022-07-23 13:46] LABS: IRON (FE) 52 UG/DL (50-170)
[2022-07-23 13:47] LABS: PERCENT SATURATION 16.4 % (13.2-45.0); TOTAL IRON BINDING CAPACITY 318 UG/DL (250-425)
[2022-07-23 13:50] LABS: ALBUMIN 3.1 G/DL (3.2-5.2); ALKALINE PHOSPHATASE 152 U/L (46-116); ALT/SGPT 25 U/L (7.0-40); AST/SGOT 23 U/L (<34); BILIRUBIN,TOTAL 0.3 MG/DL (0.3-1.2); BLOOD UREA NITROGEN 14 MG/DL (9-23); CARBON DIOXIDE LEVEL 31 MMOL/L (20-31); CHLORIDE LEVEL 98 MMOL/L (98-107); CHOLESTEROL LEVEL 161 MG/DL (<200); CHOLESTEROL RISK RATIO 4.14 (<5); CREATININE FOR GFR 0.74 MG/DL (0.55-1.30); FERRITIN 38.7 NG/ML (7.3-270.7); FOLATE > 24.0 NG/ML (>5.4); GLOMERULAR FILTRATION RATE > 60.0 (>58); GLUCOSE, FASTING 90 MG/DL (60-100); HDL CHOLESTEROL 38.8 MG/DL (>40); NON-HDL-C 122 MG/DL; POTASSIUM SERUM 3.7 MMOL/L (3.5-5.1); SODIUM LEVEL 135 MMOL/L (136-145); THYROID STIMULATING HORMONE 1.428 uIU/ML (0.55-4.78); TOTAL 25(OH) VITAMIN D 21.8 NG/ML (20.0-100.0); TOTAL PROTEIN 7.5 G/DL (5.7-8.2); TRIGLYCERIDES LEVEL 366 MG/DL (<150); VITAMIN B12 LEVEL 591 PG/ML (211-911)
== END ==
LOC: M SFHCADAM 08:05
PROVIDERS: ATTEND Physician Assistant Medical
DX: E03.9 Hypothyroidism, unspecified (principal); E78.1 Pure hyperglyceridemia; K21.9 Gastro-esophageal reflux disease without esophagitis; D64.9 Anemia, unspecified

== ENCOUNTER → 2023-07-08 | Outpatient (CLI) | payer BC | LOC: M WHC 14:58 | PROVIDERS: ATTEND Obstetrics & Gynecology | DX: Z12.31 Encounter for screening mammogram for malignant neoplasm of breast (principal) ==

== ENCOUNTER → 2023-07-08 | Outpatient (REF) | payer BC | LOC: M SFHCWAGY 18:14 | PROVIDERS: ATTEND Obstetrics & Gynecology | DX: Z01.419 Encounter for gynecological examination (general) (routine) without abnormal findings (principal) | CPT/HCPCS: 87624; G0123 ==

== ENCOUNTER → 2023-09-18 | Outpatient (REF) | payer BC ==
[~2023-09-18] MED LIST changes: +LABE300T28 PO; -LABE300T55 PO
== END ==
LOC: M SFHCADAM 08:08
PROVIDERS: ATTEND Physician Assistant Medical
DX: I10 Essential (primary) hypertension (principal); E03.9 Hypothyroidism, unspecified; E55.9 Vitamin D deficiency, unspecified

== ENCOUNTER → 2023-09-18 | Outpatient (REF) | payer BC, OTHER ==
[2023-09-18 13:43] LABS: BASO % 0.4 % (0.0-1.0); EOS # 0.2 10^3/uL (0.0-0.5); HEMATOCRIT 37.6 % (36.0-47.0); LYMPH # 2.4 10^3/uL (1.5-5.0); LYMPH % 21.3 % (24.0-44.0); MEAN CORPUSCULAR HEMOGLOBIN 29.1 pg (27.0-33.0); MEAN CORPUSCULAR HGB CONC 31.9 g/dl (32.0-36.5); MEAN CORPUSCULAR VOLUME 91.3 fl (80.0-96.0); MONO # 0.7 10^3/uL (0.0-0.8); NEUTROPHILS # 7.8 10^3/uL (1.5-8.5); NEUTROPHILS % 69.5 % (36.0-66.0); PLATELET COUNT, AUTOMATED 398 10^3/uL (150-450); RED BLOOD COUNT 4.12 10^6/uL (4.00-5.40); WHITE BLOOD COUNT 11.2 10^3/uL (4.0-10.0)
[2023-09-18 13:57] LABS: THYROID STIMULATING HORMONE 1.205 uIU/ML (0.55-4.78)
[2023-09-18 13:59] LABS: ALBUMIN 3.2 G/DL (3.2-5.2); ALKALINE PHOSPHATASE 152 U/L (46-116); ALT/SGPT 41 U/L (7.0-40); AST/SGOT 36 U/L (<34); BILIRUBIN,TOTAL 0.2 MG/DL (0.3-1.2); BLOOD UREA NITROGEN 17 MG/DL (9-23); CALCIUM LEVEL 9.7 MG/DL (8.5-10.1); CARBON DIOXIDE LEVEL 32 MMOL/L (20-31); CHLORIDE LEVEL 101 MMOL/L (98-107); CHOLESTEROL LEVEL 148 MG/DL (<200); CHOLESTEROL RISK RATIO 4.18 (<5); CREATININE FOR GFR 0.79 MG/DL (0.55-1.30); FOLATE 16.7 NG/ML (>5.4); GLOMERULAR FILTRATION RATE > 60.0 (>58); GLUCOSE, FASTING 93 MG/DL (60-100); HDL CHOLESTEROL 35.4 MG/DL (>40); IRON (FE) 47 UG/DL (50-170); NON-HDL-C 112.6 MG/DL; PERCENT SATURATION 15.5 % (13.2-45.0); POTASSIUM SERUM 4.1 MMOL/L (3.5-5.1); SODIUM LEVEL 139 MMOL/L (136-145); TOTAL IRON BINDING CAPACITY 303 UG/DL (250-425); TOTAL PROTEIN 7.7 G/DL (5.7-8.2); TRIGLYCERIDES LEVEL 411 MG/DL (<150); VITAMIN B12 LEVEL 698 PG/ML (211-911)
== END ==
LOC: M LABDRWAD 12:41
PROVIDERS: ATTEND Surgery
DX: E66.01 Morbid (severe) obesity due to excess calories (principal)

== ENCOUNTER → 2023-10-23 | Outpatient (CLI) | payer OTHER | LOC: M RAD 09:42 | PROVIDERS: ATTEND Surgery | DX: E66.01 Morbid (severe) obesity due to excess calories (principal); K76.0 Fatty (change of) liver, not elsewhere classified ==

== ENCOUNTER → 2024-02-21 | Outpatient (REF) | payer OTHER ==
[2024-02-21 18:46] LABS: BASO % 0.3 % (0.0-1.0); EOS # 0.3 10^3/uL (0.0-0.5); EOS % 2.7 % (0.0-3.0); HEMATOCRIT 38.1 % (36.0-47.0); HEMOGLOBIN 12.1 g/dl (12.0-15.5); LYMPH # 2.8 10^3/uL (1.5-5.0); LYMPH % 22.7 % (24.0-44.0); MEAN CORPUSCULAR HEMOGLOBIN 28.2 pg (27.0-33.0); MEAN CORPUSCULAR HGB CONC 31.8 g/dl (32.0-36.5); MEAN CORPUSCULAR VOLUME 88.8 fl (80.0-96.0); MONO # 0.7 10^3/uL (0.0-0.8); MONO % 5.4 % (2.0-8.0); NEUTROPHILS # 8.5 10^3/uL (1.5-8.5); NEUTROPHILS % 68.7 % (36.0-66.0); PLATELET COUNT, AUTOMATED 391 10^3/uL (150-450); RED BLOOD COUNT 4.29 10^6/uL (4.00-5.40); WHITE BLOOD COUNT 12.4 10^3/uL (4.0-10.0)
== END ==
LOC: M LABDRWAD 17:45
PROVIDERS: ATTEND Registered Nurse
DX: D72.829 Elevated white blood cell count, unspecified (principal)

== ENCOUNTER → 2024-09-14 | Outpatient (REF) | payer OTHER | LOC: M SFHCWAGY 17:54 | PROVIDERS: ATTEND Obstetrics & Gynecology | DX: Z12.4 Encounter for screening for malignant neoplasm of cervix (principal) ==

== ENCOUNTER → 2024-09-14 | Outpatient (CLI) | payer OTHER | LOC: M WHC 15:02 | PROVIDERS: ATTEND Obstetrics & Gynecology | DX: Z12.31 Encounter for screening mammogram for malignant neoplasm of breast (principal); Z80.3 Family history of malignant neoplasm of breast; Z80.0 Family history of malignant neoplasm of digestive organs; R92.323 Mammographic fibroglandular density, bilateral breasts ==

== ENCOUNTER → 2024-12-22 | Outpatient (REF) | payer OTHER ==
[~2024-12-22] MED LIST changes: +LISI40TA10 PO; -LISI40TA4 PO
== END ==
LOC: M LAB REF 16:33
PROVIDERS: ATTEND Surgery
DX: D48.5 Neoplasm of uncertain behavior of skin (principal)

== ENCOUNTER → 2025-03-24 | Outpatient (CLI) | payer OTHER ==
[2025-03-24 20:01] LABS: BASO # 0.0 10^3/uL (0.0-0.2); BASO % 0.3 % (0.0-1.0); EOS # 0.1 10^3/uL (0.0-0.5); EOS % 1.0 % (0.0-3.0); LYMPH # 2.0 10^3/uL (1.5-5.0); LYMPH % 16.3 % (24.0-44.0); MONO # 0.7 10^3/uL (0.0-0.8); MONO % 5.7 % (2.0-8.0); NEUTROPHILS # 9.5 10^3/uL (1.5-8.5); NEUTROPHILS % 76.4 % (36.0-66.0); PLATELET COUNT, AUTOMATED 373 10^3/uL (150-450)
[2025-03-24 20:17] LABS: ALT/SGPT 43 U/L (7.0-40); AST/SGOT 34 U/L (<34); CALCIUM LEVEL 9.5 MG/DL (8.5-10.1); CARBON DIOXIDE LEVEL 31 MMOL/L (20-31); CHLORIDE LEVEL 97 MMOL/L (98-107); CREATININE FOR GFR 0.69 MG/DL (0.55-1.30); GLOMERULAR FILTRATION RATE > 90.0 (>58); IRON (FE) 40 UG/DL (50-170); PERCENT SATURATION 12.5 % (13.2-45.0); POTASSIUM SERUM 3.7 MMOL/L (3.5-5.1); SODIUM LEVEL 139 MMOL/L (136-145)
[2025-03-24 20:19] LABS: TOTAL 25(OH) VITAMIN D 44.7 NG/ML (20.0-100.0); VITAMIN B12 LEVEL 1043 PG/ML (211-911)
== END ==
LOC: M LABDRWAD 14:19
PROVIDERS: ATTEND Registered Nurse
DX: E66.9 Obesity, unspecified (principal)

== ENCOUNTER → 2025-06-08 | Outpatient (REF) | payer OTHER ==
[~2025-06-08] MED LIST changes: -LABE100T6 PO; +LABE100T91 PO; -LABE200T5 PO; +LABE200T86 PO
[2025-06-11 13:02] LABS: RUBEOLA IgG ANTIBODY 39.9 AU/mL (>16.49)
== END ==
LOC: M SFHCADAM 09:08
PROVIDERS: ATTEND Physician Assistant Medical
DX: Z11.59 Encounter for screening for other viral diseases (principal); Z20.820 Contact with and (suspected) exposure to varicella